=== PATIENT | female | born 1945 | race Caucasian/White ===

== ENCOUNTER 2022-04-29 08:52 | Outpatient (CLI) | payer MEDICARE, SELFPAY ==
[2022-04-29 13:53] LABS: Chloride* 105 mmol/L (96-114); Potassium* 4.4 mmol/L (3.6-5.1); Sodium* 137 mmol/L (135-149)
[2022-04-29 13:55] LABS: Cholesterol* 191 mg/dL (90-199); Creatinine* 0.8 mg/dL (0.5-1.5); Estimated Glomerular Filt Rate 77 ml/min
[2022-04-29 13:56] LABS: Blood Urea Nitrogen* 22 mg/dL (7-30); Calcium* 9.6 mg/dL (8.4-10.6); Carbon Dioxide* 26 mmol/L (20-32); Glucose* 96 mg/dL (60-115); Triglycerides* 70 mg/dL (40-149)
[2022-04-29 14:12] LABS: HDL Cholesterol* 87 mg/dL (>=50); LDL Cholesterol Calculated 90 mg/dL (<100)
[2022-04-29 14:40] LABS: Vitamin D 25 Hydroxy* 67 ng/mL (30-80)
== END 2022-04-29 08:53 | disposition home or self-care (01) ==
PROVIDERS: PCP Internal Medicine; Visit Provider Internal Medicine
DX: Z00.00 Encounter for general adult medical examination without abnormal findings (principal); E78.5 Hyperlipidemia, unspecified; I10 Essential (primary) hypertension; M85.80 Other specified disorders of bone density and structure, unspecified site; I25.10 Atherosclerotic heart disease of native coronary artery without angina pectoris
CPT/HCPCS: 80048; 80061; 82306

== ENCOUNTER 2023-01-16 07:53 | Outpatient (CLI) | payer MEDICARE, BC, SELFPAY ==
--- NOTE | 2023-01-16 08:15 | CRLHL7_ITS ---
For Patients: As a result of the Century Cures Act, medical imaging exams and procedure reports are released immediately into your electronic medical record. You may view this report before your referring provider. If you have questions, please contact your health care provider. BILATERAL SCREENING MAMMOGRAM WITH COMPUTER-AIDED DETECTION AND TOMOSYNTHESIS TECHNIQUE: CC and MLO views were obtained. These mammographic images have been obtained using full-field digital technique. These mammographic images were interpreted with the benefit of computer-aided detection. Breast Tomosynthesis was used in this interpretation. COMPARISON FILM: 12/05/21, 05/10/21, 05/08/20. FINDINGS: The breasts are heterogeneously dense, which may obscure small masses IMPRESSION: There is no radiographic evidence for malignancy. ASSESSMENT: BI-RADS Category 2: Benign RECOMMENDATION: Routine screening mammogram in 1 year. A lay language report of this examination will be provided to the patient. Jaswinder Camp M.D. Diagnostic Radiologist [email or web address] ZAC/hector Transcribed: 2:44 p.jaki young/Dictated by: Jaswinder Camp MD @ 01/16/2023 9:17:00 AM (Electronically Signed)
== END 2023-01-16 07:54 | disposition home or self-care (01) ==
LOC: MAMMO 07:54
PROVIDERS: PCP Internal Medicine; Visit Provider Internal Medicine
DX: Z12.31 Encounter for screening mammogram for malignant neoplasm of breast (principal); R92.2 Inconclusive mammogram
CPT/HCPCS: 77063; 77067

== ENCOUNTER 2023-03-04 11:33 | Outpatient (CLI) | payer MEDICARE, BC, SELFPAY ==
--- OUTSIDE RECORDS SUMMARY | 2023-03-10 10:01 | XMS_ITS | Continuity of Care Document ---
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 Name Role Phone Hanna Scotty CONTI Unavailable Unavailable Allergies, Adverse Reactions, Alerts Substance Reaction Status Criticality No Known Allergies Active No Inform ation Medications Medication Instructions Dosage Effective Dates (start - stop) Status Comments albuterol sulfate HFA 90 mcg/actuation aerosol inhaler inhale 2 puff by inhalation route every 4 - 6 hours as needed 180 MCG - Active aspirin 81 mg tablet,delayed release take 1 tablet by oral route every day 81 MG - Active atorvastatin 20 mg tablet take 1 tablet by oral route every day 20 MG - Active dorzolamide-timolol (PF) 2 %-0.5 % eye drops in a dropperette instill 1 drop by ophthalmic route 2 times every day into affected eye(s) 1.00 drop - Active Advair Diskus 250 mcg-50 mcg/dose powder for inhalation inhale 1 puff by inhalation route 2 times every day in the morning and evening approximately 12 hours apart 1.00 puff - Active ketorolac 0.5 % eye drops instill 1 drop by ophthalmic route 2 times every day into affected eye(s) 1 drop - Active losartan 25 mg tablet take 1 tablet by o ral route every day 25 MG - Active metoprolol succinate ER 100 mg tablet,extended release 24 hr take 1 tablet by oral route every day 100 MG - Active Procedures Procedure Date Colonoscopy Flex; W/remov Les- Level Iv-surg Path Gross/micro Advance Directives Directive Yes / No Effective Date File Name No Information Encounters Encounter Description Practice Location Reason(s) For Visit Diagnoses Date Provider Providers Copied on Encounter [facility], [address] [address], [place], [place], [address], [place] tel:[phone] [facility] No Information 2 Hanna GALLITO Scotty. [address], [place], [place], [address], [place]. tel:[phone] Referring Provider: Roby Lopez, [address], [place], [address] . tel:[phone] [facility], [address] [address], [place], [place], [address], [place] tel:[phone] [facility] GI Symptoms or Concerns (chief complaint) Positive colorectal cancer screening using Cologuard testColorectal polyp detected on colonoscopyBenign neoplasm of cecumBenign neoplasm of ascending colonBenign neoplasm of descending colonOther fecal abnormalitiesBenig n neoplasm of cecum 2 Albetr Ca. [address], [place], [place], [address], [place]. tel:[phone] Referring Provider: Astrid Perez, [address] [place], [address]. tel:[phone] [facility], [address] [address], [place], [place], [address], [place] tel:[phone] [facility] No Information 2 Ana Harris. [address], [place], [place], [address], [place]. tel:[phone] Family History Family Member Type Diagnosis Age At Onset Mother Problem (finding) malignant neoplasm of p ancreas Immunizations Vaccine Date Status Comments influenza, high-dose seasona l, quadrivalent, .7mL dose, preservative free administered Note: [facility] bi-direct ional interface ; Source: Other Registry SARS-COV-2 (COVID-19) vaccin e, mRNA, spike protein, LNP, preservative free, 30 mcg/0.3mL dose administered Note: [facility] bi-direct ional interface ; Source: Other Registry SARS-COV-2 (COVID-19) vaccin e, mRNA, spike protein, LNP, preservative free, 30 mcg/0.3mL dose administered Note: [facility] bi-direct ional interface ; Source: Other Registry SARS-COV-2 (COVID-19) vaccin e, mRNA, spike protein, LNP, preservative free, 30 mcg/0.3mL dose administered Note: [facility] bi-direct ional interface ; Source: Other Registry influenza, seasonal vaccine, quadrivalent, adjuvanted, .5mL dose, preservative free administered Note: [facility] bi-di rectional interface ; Source: Other Registry zoster vaccine recombinant administered N ote: [facility] bi-directional interface ; Source: Other Registry zoster vaccine recombinant administered N ote: [facility] bi-directional interface ; Source: Other Registry influenza, high dose seasona l, preservative-free administered Note: [facility] bi-direct ional interface ; Source: Other Registry influenza, high dose seasona l, preservative-free administered Note: [facility] bi-direct ional interface ; Source: Other Registry influenza, high dose seasona l, preservative-free administered Note: [facility] bi-direct ional interface ; Source: Other Registry influenza, high dose seasona l, preservative-free administered Note: [facility] bi-direct ional interface ; Source: Other Registry influenza, high dose seasona l, preservative-free administered Note: [facility] bi-direct ional interface ; Source: Other Registry Prevnar 13 administered Note: [facility] bi-d irectional interface ; Source: Other Registry influenza, high dose seasona l, preservative-free administered Note: [facility] bi-direct ional interface ; Source: Other Registry Influenza, seasonal, injecta ble, preservative free administered Note: [facility] bi-direct ional interface ; Source: Other Registry tetanus toxoid, reduced diphtheria toxoid, and acellular pertussis vaccine, adsorbed administered Note: [facility] b i-directional interface ; Source: Other Registry Pneumovax 23 administered Note: [facility] bi-d irectional interface ; Source: Other Registry Influenza, seasonal, injectable administe red Note: [facility] bi- directional interface ; Source: Other Registry zoster vaccine, live administered Note: [facility] bi-directional interface ; Source: Other Registry Influenza, seasonal, injecta ble, preservative free administered Note: [facility] bi-direct ional interface ; Source: Other Registry Influenza, seasonal, injecta ble, preservative free administered Note: [facility] bi-direct ional interface ; Source: Other Registry Influenza, seasonal, injectable administe red Note: [facility] bi- directional interface ; Source: Other Registry Influenza, seasonal, injectable administe red Note: [facility] bi- directional interface ; Source: Other Registry Influenza, seasonal, injectable administe red Note: [facility] bi- directional interface ; Source: Other Registry Influenza, seasonal, injectable administe red Note: [facility] bi- directional interface ; Source: Other Registry influenza virus vaccine, unspecified formulation administered Note: [facility] bi-di rectional interface ; Source: Other Registry influenza virus vaccine, unspecified formulation administered Note: [facility] bi-di rectional interface ; Source: Other Registry influenza virus vaccine, unspecified formulation administered Note: [facility] bi-di rectional interface ; Source: Other Registry influenza virus vaccine, unspecified formulation administered Note: [facility] bi-di rectional interface ; Source: Other Registry Payers Payer name Insurance type Covered green party ID Authoriza tireum(s) [employer] [place] [employer] BL [id number] Social History Type Description Quantity Date Captured Comments Sex Female Smoking Status No Information Chief Complaint And Reason For Visit No Information Reason For Referral Reason For Referral No Information Plan Of Treatment Date Type Action Status No Information History Of Present Illness Encounter Date Complaint History Of Prese nt Illness GI Symptoms or Concerns Functional Status Date Functional Assessmen t No Information Instructions Date Instruction Additional Infor mation Diverticulosis/Diverticulitis Re lated to Colorectal polyp detected on colonoscopy Colon Polyps Related to Color ectal polyp detected on colonoscopy High Fiber Diet Related to Color ectal polyp detected on colonoscopy Colon Cancer Prevention Related to Colorectal polyp detected on colonoscopy Assessments Type Assessment Date No Information Patient Care Teams Name Effective Dates (start - stop) Status Members No Information
== END 2023-03-04 11:34 | disposition home or self-care (01) ==
LOC: AMB 03-10 09:59
PROVIDERS: PCP Internal Medicine; Visit Provider Family Medicine
DX: I62.00 Nontraumatic subdural hemorrhage, unspecified (principal)
CPT/HCPCS: A0425; A0428; A0434

== ENCOUNTER 2023-06-03 08:35 | Outpatient (CLI) | payer MEDICARE, BC, SELFPAY | END 2023-06-03 08:36 | disposition home or self-care (01) | LOC: NFLDREF 17:39 | PROVIDERS: PCP Internal Medicine; Referring Provider Internal Medicine; Visit Provider Internal Medicine | DX: E78.5 Hyperlipidemia, unspecified (principal); M85.80 Other specified disorders of bone density and structure, unspecified site; I10 Essential (primary) hypertension | CPT/HCPCS: 80048; 80061; 82306 ==

== ENCOUNTER 2023-07-30 08:41 | Outpatient (CLI) | payer MEDICARE, BC, SELFPAY ==
--- NOTE | 2023-07-30 09:00 | CRLHL7_ITS ---
For Patients: As a result of the Century Cures Act, medical imaging exams and procedure reports are released immediately into your electronic medical record. You may view this report before your referring provider. If you have questions, please contact your health care provider. INDICATION: Subdural hematoma, follow-up. TECHNIQUE: Noncontrast CT of the head with multiplanar reformat in bone and soft tissue algorithms. COMPARISON: CT head dated 03/04/2023. FINDINGS: Interval right frontal craniotomy for subdural hematoma evacuation. Significant interval decrease in size of the right hemispheric subdural hematoma with residual hypodense component at the inferior frontal convexity measuring up to 5 millimeters in thickness (series 6, image 37). As before, prominence of the right cerebellopontine angle cistern perhaps representing arachnoid cyst. The reeder-white matter interface is preserved. Corresponding decrease in [id number] midline shift which now measures approximately 3 millimeters (previously 9 millimeters). The ventricles are normal in size. Redemonstrated evidence of prior right scleral banding. Paranasal sinuses and mastoid air cells are clear. IMPRESSION: 1. Interval right frontal craniotomy with significant decrease in size of the the subdural hematoma and decreased associated midline shift. 2. No CT evidence of cortical infarct. 3. 5 mm residual subdural fluid collection at the right inferior frontal convexity and 3 mm residual midline shift. 4. Prominence of the CSF space at the right cerebellopontine angle, perhaps reflecting arachnoid cyst. Please note that all CT scans at this facility use dose modulation, iterative reconstruction, and/or weight-based dosing when appropriate to reduce radiation dose to as low as reasonably achievable. Dictated by Marcus Joshi MD @ 07/30/2023 12:39:56 PM (Electronically Signed)
== END 2023-07-30 08:42 | disposition home or self-care (01) ==
LOC: CT 08:42
PROVIDERS: PCP Internal Medicine; Visit Provider Physician Assistant
DX: S06.5XAA Traumatic subdural hemorrhage with loss of consciousness status unknown, initial encounter (principal)
CPT/HCPCS: 70450

== ENCOUNTER 2023-08-07 11:47 | Emergency (ER) | payer MEDICARE, BC, SELFPAY ==
[2023-08-07 12:11] VITALS: BP 146/85; PULSE 84; RESP 16; TEMP 36.2; O2SAT 92; BMI 24.7
[2023-08-07 15:38] VITALS: BP 159/84; PULSE 86; RESP 18; TEMP 36.7; O2SAT 94
--- NOTE | 2023-08-07 15:39 | PC.NURSE ---
Pt in waiting room, reassessed, nose clamp has been on since 1244. Still feeling some drainage into back of throat, bleeding was in right nare. Pt pleasant, VSS, will continue to monitor.
--- NOTE | 2023-08-07 16:54 | ED_ITS ---
HPI - General Adult General Date Seen: 08/07/23 Chief complaint: Epistaxis/Nosebleed Stated complaint: Nose bleed Time Seen by Provider: 08/07/23 16:20 History of Present Illness HPI narrative: This is a very pleasant 78-year-old female presenting to the ER today with her for evaluation of epistaxis. She does not take any blood thinners. 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 She has been healthy and well lately. No recent nasal injury, nasal infection, sinus infections, or allergies. No other unusual bleeding or bruising lately. Around 930 this morning she began to having a nose bleed. It was coming from both nostrils with seemed to be heavier on the right than on the left. She was also having bleeding down the back of her oropharynx. Bleeding happened off and on throughout the morning and she came here to the ER. She was given a nasal clip to place on her nose here and bleeding has slowed with that but is still occurring intermittently. She is not lightheaded, weak, dizzy, or short of breath from blood loss. She recalls that she has had a nose bleed he several years ago, on the left nostril, that was cauterized by ENT. No other long-term recurrent nosebleeds Related Data Home Medications Medication Instructions Recorded Confirmed albuterol sulfate 90 mcg/actuation 2 inhalation PRN 05/02/22 06/17/23 aerosol inhaler calcium carbonate 600 mg-vitamin 2 tab PO DAILY 05/02/22 06/17/23 D3 10 mcg (400 unit) tablet cyanocobalamin (vitamin B-12) 1,000 mcg PO DAILY 05/02/22 06/17/23 1,000 mcg tablet,extended release dorzolamide 22.3 mg-timolol 6.8 1 ophthalmic (eye) BID 05/02/22 06/17/23 mg/mL eye drops fluticasone propionate 230 2 inhalation BID 05/02/22 06/17/23 mcg-salmeterol 21 mcg/actuation HFA inhaler ketorolac 0.5 % eye drops 0.5 drp ophthalmic (eye) BID 05/02/22 06/17/23 multivitamin (Multiple Vitamins 1 tab PO QAM 05/02/22 06/17/23 tablet) vitamin B complex 1 cap PO QDAY 05/02/22 06/17/23 levetiracetam 750 mg tablet 1,500 mg PO BID 04/03/23 06/17/23 Previous Rx's Medication Instructions Recorded nitroglycerin 0.4 mg sublingual 0.4 mg sublingual Q5M PRN chest 05/02/22 tablet pain #20 tabs atorvastatin 20 mg tablet 20 mg PO .Bedtime #90 tabs 06/09/23 metoprolol succinate 50 mg 50 mg PO QDAY #90 tabs 06/09/23 tablet,extended release 24 hr codeine 10 mg-guaifenesin 100 mg/5 10 ml PO Q4-6H PRN cough #237 mL 06/17/23 mL oral liquid (Guaifenesin AC) Allergies Allergy/AdvReac Type Severity Reaction Status Date / Time No Known Allergies Allergy Unknown Verified 08/07/23 12:10 PFS PFS Surgical History Retinal detachment ?H33.20 - Serous retinal detachment, unspecified eye (ICD-10) History of laparoscopic appendectomy (02/2014) ?Z90.49 - Acquired absence of other specified parts of digestive tract (ICD- 10) History of bilateral salpingo-oophorectomy (BSO) (02/2014) ?Z90.79 - Acquired absence of other genital organ(s) (ICD-10) ?Z90.722 - Acquired absence of ovaries, bilateral (ICD-10) History of benign breast biopsy ?Z98.890 - Other specified postprocedural states (ICD-10) Social History Smoking Status: Never smoker How often do you have a drink containing alcohol: monthly or less AUDIT-C Alcohol total score: 1 Non-prescribed substance use: denies use Little interest or pleasure in doing things: not at all Feeling down, depressed, or hopeless: not at all service: No Exam Narrative: Exam Narrative: Constitutional: Appears well-developed and well-nourished. Alert. Conversant. Non toxic. HENT: Head: Atraumatic. Nose: Clip in place, removed for exam. External Nose normal. No deformity or swelling to suggest trauma. She has no active epistaxis. There is some dry blood around the right anterior naris. Small amount of dry blood in left anterior nares. No posterior pharyngeal bleeding. Evaluated using otoscope. Possible small site of recent bleeding on the left anterior septal mucosa. Too much dry blood to visualize any site of bleeding on the right. Applied Afrin. Re-evaluation. Still no definitive site of bleeding. No recurrent bleeding at but did spit out 1 small pea size clot of blood. Applied viscous lidocaine-2% on a cotton ball in each nostril. Re-evaluation- her right nares is clean and dry. No active bleeding. No residual clots. No stigmata of recent bleeding visualized in the anterior secti on. In the left nose there is also no active bleeding. There is a small purple lesion there that may be a recent L. However based on the predominance of the bleeding being from the right nostril earlier, I do not think this was the true source of epistaxis. Concern here is for possible a posterior bleed. At this point she is not bleeding. A monitor the patient here in the ER. She had no recurrent bleeding. She had a vigorous ambulation trial out in the hallway down to the hospital statue and back. She was able to bend over and touch her toes and put her head in dependent position and this did not trigger any rebleeding. Mouth/Throat: Oral mucosa is clear and moist. no trismus. Pharynx normal. Tonsils symmetric. No tonsillar enlargement, erythema, or exudate. Eyes: Conjunctivae normal. EOM normal. Pupils equal, round, and reactive to light. No scleral icterus. Neck: Normal range of motion. Neck supple. No tracheal deviation present. Cardiovascular: Normal rate, regular rhythm. No gallop. No friction rub. No murmur heard. Symmetric radial artery pulses Pulmonary/Chest: Effort normal. No stridor. No respiratory distress. No wheezes. No rales. No rhonchi . No tenderness. Abdominal: Soft. Bowel sounds normal. No distension. No mass. No tenderness. No rebound. No guarding. Musculoskeletal: RUE: Normal range of motion. No tenderness. No deformity LUE: Normal range of motion. No tenderness. No deformity RLE: Normal range of motion. No edema. No tenderness. No deformity LLE: Normal range of motion. No edema. No tenderness. No deformity Lymph: No cervical adenopathy. Neurological: Alert and oriented to person, place, and time. Normal strength. CN II-VII intact. No sensory deficit. GCS eye subscore is 4. GCS verbal subscore is 5. GCS motor subscore is 6. Normal coordination Skin: Skin is warm and dry. No rash noted. No pallor. Normal capillary refill. Psychiatric: Normal mood. Normal affect. Const: Vital Signs, click to edit/add: Vital Signs - 24 hr 08/07/23 12:11 08/07/23 15:38 Temperature 97.2 F L 98.0 F Pulse Rate [Pulse Oximeter] 84 86 Respiratory Rate 16 18 Blood Pressure [Ri ght Upper Arm] 146/85 H 159/84 H Pulse Oximetry 92 94 Oxygen Delivery Me thod Room Air Room Air Course Vital Signs Vital signs: Initial Vital Signs Temperature 97.2 F L 08/07/23 12:11 Temperature Source Temporal Artery Scan 08/07/23 12:11 Pulse Rate 84 08/07/23 12:11 Pulse Rhythm Regular 08/07/23 12:11 Pulse Strength 3+ Normal 08/07/23 12:11 Respiratory Rate 16 08/07/23 12:11 Blood Pressure 146/85 H 08/07/23 12:11 Blood Pressure Mean 105 08/07/23 12:11 Blood Pressure Position Sitting 08/07/23 12:11 Pulse Oximetry 92 08/07/23 12:11 Oxygen Delivery Method Room Air 08/07/23 12:11 Vital Signs Temperature 97.2 F L 08/07/23 12:11 Pulse Rate 84 08/07/23 12:11 Respiratory Rate 16 08/07/23 12:11 Blood Pressure 146/85 H 08/07/23 12:11 Pulse Oximetry 92 08/07/23 12:11 Oxygen Delivery Method Room Air 08/07/23 12:11 Temperature 98.0 F 08/07/23 15:38 Pulse Rate 86 08/07/23 15:38 Respiratory Rate 18 08/07/23 15:38 Blood Pressure 159/84 H 08/07/23 15:38 Pulse Oximetry 94 08/07/23 15:38 Oxygen Delivery Method Room Air 08/07/23 15:38 Medical Decision Making MDM Narrative Medical decision making narrative: This is a pleasant 78-year-old female who presents to the ER today for intermittent nose bleeds coming from both nostrils, but predominantly the right nostril that began this morning. She had been waiting here in the ER lobby for couple of hours and applying direct pressure with a nasal clamp. Nosebleed was essentially controlled by the time I evaluated her. We did do careful evaluation to look for sources of anterior nose bleed that might be amenable to cautery. However there did really is not any clear source in the anterior nares. Suspicion is for probable posterior bleed. Discussed with the patient that at this point she is not bleeding. There is certainly a risk that she would rebleed later this afternoon or tonight or tomorrow. We could minimize the risk of rebleeding if we packed her nose with a rhino rocket. However the downsides of nasal packing would include discomfort, risk for sinus infection, trouble breathing, and need for ENT follow-up to remove the packing. Using shared decision making we decided to hold off on packing at this time. Fortunately she is not anticoagulated. She is not having any symptoms of anemia or weakness. Will hold off on CBC her labs. Blood pressure minimally elevated. We discussed steps for managing recurrent epistaxis at home and precautions for return to the ER. Patient and her agree and understand. If he does return with rebleeding, would re-evaluate her anterior still for any new site that might be amenable to cautery, but I suspect she will probably need packing with a rhino rocket. Discharge Plan Discharge Clinical Impression: Epistaxis Patient Disposition: Home, Self-Care Condition: Stable Instructions: Nosebleed (ED) Additional Instructions: If your nose starts bleeding again, follow the steps. 1. Go somewhere where you do not mind making a mess. Lean forward so bleeding comes out the front, not down the back of your throat. 2. Use your fingers with a nasal clip to apply pressure to the soft squishy part of the front of your nose. Apply pressure for 10 minutes. 3. If the bleeding has not stopped, apply Afrin into the bleeding nostril (as we did here) and reapply pressure for 10 minutes. 4. If the bleeding still does not stop, come to the ER for re-evaluation. You probably will require nasal packing to stop the bleed. Prescriptions: No Action calcium carbonate-vitamin D3 600 mg-10 mcg (400 unit) tablet 2 tab PO DAILY vitamin B complex Capsule 1 cap PO QDAY multivitamin [Multiple Vitamins] Tablet 1 tab PO QAM albuterol sulfate 90 mcg/actuation HFA aerosol inhaler 2 inhalation PRN cyanocobalamin (vitamin B-12) 1,000 mcg tablet extended release 1,000 mcg PO DAILY ketorolac 0.5 % drops 0.5 drp ophthalmic (eye) BID dorzolamide-timolol 22.3-6.8 mg/mL drops 1 ophthalmic (eye) BID fluticasone propion-salmeterol 230-21 mcg/actuation HFA aerosol inhaler 2 inhalation BID nitroglycerin 0.4 mg tablet, sublingual 0.4 mg sublingual Q5M PRN (Reason: chest pain) Qty: 20 3RF Rx Instructions: PRN CHEST PAIN levetiracetam 750 mg tablet 1,500 mg PO BID metoprolol succinate 50 mg tablet extended release 24 hr 50 mg PO QDAY Qty: 90 3RF atorvastatin 20 mg tablet 20 mg PO .Bedtime Qty: 90 3RF codeine-guaifenesin [Guaifenesin AC] 10-100 mg/5 mL liquid 10 ml PO Q4-6H PRN (Reason: cough) Qty: 237 0RF Follow Up/Referrals: Astrid Malin MD [Primary Care Provider] - [facility]
--- OUTSIDE RECORDS SUMMARY | 2023-08-07 16:56 | XMS_ITS | Continuity of Care Document ---
Author Name Unknown Organization [facility] Address [address] [address] [place] [address] Phone Care Team Providers Care Care Companion Name Role Phone Hanna Scotty CONTI Unavailable [...] Diagnoses Date Provider Providers Copied on Encounter [facility], [address] [address], [place], [place], [id number], [place] tel:[phone] [facility] No Information 2 Hanna GALLITO Scotty. [address], [place], [place], [id number], [place]. tel:[phone] Referring Provider: Roby Lopez, [address], [place], [address] . tel:[phone] [facility], [address] [address], [place], [place], [address], [place] tel:[phone] [facility] GI Symptoms or Concerns (chief complaint) Positive colorectal cancer screening using Cologuard testColorectal polyp detected on colonoscopyBenign neoplasm of cecumBenign neoplasm of ascending colonBenign neoplasm of descending colonOther fecal abnormalitiesBenig n neoplasm of cecum 2 Albert Ca. [address], [address], [place], [place], [address], [place]. tel:[phone] Referring Provider: Astrid Perez, [address] [place], [address]. tel:[phone] [facility], [address] [address], [place], [place], [address], [place] tel:[phone] [facility] No Information 2 Ana Harris. [address], [address], [place], [place], [address], [place]. tel:[phone] Family History Family Member Type Diagnosis Age [...] Registry Payers Payer name Insurance type Covered libertarian ID Authoriza tion(s) Blue Cross [place] Blue BL [id number] Social History Type Description Quantity Date Captured Comments Sex Female Smoking Status No Information Chief Complaint And Reason For Visit No Information Reason For Referral Reason For Referral No Information History Of Present Illness Encounter [...]
[2023-08-07] MEDS: OXYMETAZOLINE (AFRIN) SOAK 1 EACH TOPICAL (17:31)
[2023-08-07] MEDS: lidocaine HCL 2 % JELLY (TOP) STERILE 6 ML TOPICAL (17:32)
== END 2023-08-07 17:27 | disposition home or self-care (01) ==
PROVIDERS: Emergency Provider Emergency Medicine; PCP Internal Medicine
DX: R04.0 Epistaxis (principal)
CPT/HCPCS: 99282; 99283

== ENCOUNTER 2023-10-18 06:25 | Emergency (ER) | payer MEDICARE, BC, SELFPAY ==
[2023-10-18] VITALS (9 sets, daily range): BP systolic 160–194; BP diastolic 82–107; PULSE 60–74; RESP 20; TEMP 36; O2SAT 94–98
--- NOTE | 2023-10-18 06:52 | CRLHL7_ITS ---
For Patients: As a result of the Century Cures Act, medical imaging exams and procedure reports are released immediately into your electronic medical record. You may view this report before your referring provider. If you have questions, please contact your health care provider. INDICATION: Dizziness COMPARISON: July 30, 2023 TECHNIQUE: CT examination of the head was performed as axial sections without intravenous contrast. Images were obtained from the vertex of the skull through the skull base. Please note that all CT scans at this facility use dose modulation, iterative reconstruction, and/or weight-based dosing when appropriate to reduce radiation dose to as low as reasonably achievable. FINDINGS: The brain shows no sign of mass lesion, mass effect, hemorrhage, or edema. There are involutional changes. There is mild cortical atrophy and there is mild white matter disease. There is no hydrocephalus. The visualized portions of the orbits are normal in appearance. Right frontotemporal craniotomy similar to the prior study. No acute osseous finding IMPRESSION: Involutional changes. No acute-appearing findings. Findings of a prior right frontotemporal craniotomy. Similar to the prior examination. Please note that all CT scans at this facility use dose modulation, iterative reconstruction, and/or weight-based dosing when appropriate to reduce radiation dose to as low as reasonably achievable. Dictated by Sam Redmond MD @ 10/18/2023 7:23:44 AM (Electronically Signed)
--- NOTE | 2023-10-18 07:00 | ED.DIZZY ---
HPI - Dizziness General Chief Complaint: Dizziness/Vertigo Stated Complaint: dizzy Time Seen by Provider: 10/18/23 06:44 History of Present Illness HPI Narrative: Patient is a 78-year-old woman who actually had a subdural hematoma evacuated in February of 2023. Fallen the previous November and . The subdural have been growing since that time. She presents today with the abrupt onset of dizziness and vertigo that occurred this morning. She has had no nausea no vomiting no fevers no chills no headaches. Her symptoms have improved since she woke this morning. Patient is concerned that this subdural has returned. She has had no seizure activity and has not had any recent injuries. She has no discomfort at this time. She is not on blood thinners anti-platelet agents or anticoagulants. Related Data Home Medications Medication Instructions Recorded Confirmed albuterol sulfate 90 mcg/actuation 2 inhalation PRN 05/02/22 10/14/23 aerosol inhaler calcium carbonate 600 mg-vitamin 2 tab PO DAILY 05/02/22 10/14/23 D3 10 mcg (400 unit) tablet cyanocobalamin (vitamin B-12) 1,000 mcg PO DAILY 05/02/22 10/14/23 1,000 mcg tablet,extended release dorzolamide 22.3 mg-timolol 6.8 1 ophthalmic (eye) BID 05/02/22 10/14/23 mg/mL eye drops fluticasone propionate 230 2 inhalation BID 05/02/22 10/14/23 mcg-salmeterol 21 mcg/actuation HFA inhaler ketorolac 0.5 % eye drops 0.5 drp ophthalmic (eye) BID 05/02/22 10/14/23 multivitamin (Multiple Vitamins 1 tab PO QAM 05/02/22 10/14/23 tablet) vitamin B complex 1 cap PO QDAY 05/02/22 10/14/23 Previous Rx's Medication Instructions Recorded nitroglycerin 0.4 mg sublingual 0.4 mg sublingual Q5M PRN chest 05/02/22 tablet pain #20 tabs atorvastatin 20 mg tablet 20 mg PO .Bedtime #90 tabs 06/09/23 metoprolol succinate 50 mg 50 mg PO QDAY #90 tabs 06/09/23 tablet,extended release 24 hr losartan 25 mg tablet 25 mg PO DAILY #90 tabs 10/14/23 Allergies Allergy/AdvReac Type Severity Reaction Status Date / Time No Known Allergies Allergy Unknown Verified 10/14/23 07:57 Review of Systems Status of ROS: Reports: 10 or more systems reviewed and unremarkable except as noted in History and below [facility] Medical History History of subdural hematoma ?Z86.79 - Personal history of other diseases of the circulatory system (ICD-10) Surgical History Retinal detachment ?H33.20 - Serous retinal detachment, unspecified eye (ICD-10) History of laparoscopic appendectomy (02/2014) ?Z90.49 - Acquired absence of other specified parts of digestive tract (ICD-10) History of bilateral salpingo-oophorectomy (BSO) (02/2014) ?Z90.79 - Acquired absence of other genital organ(s) (ICD-10) ?Z90.722 - Acquired absence of ovaries, bilateral (ICD-10) History of benign breast biopsy ?Z98.890 - Other specified postprocedural states (ICD-10) Social History Smoking Status: Never smoker How often do you have a drink containing alcohol: monthly or less AUDIT-C Alcohol total score: 1 Non-prescribed substance use: denies use Little interest or pleasure in doing things: not at all Feeling down, depressed, or hopeless: not at all service: No Exam Narrative: Exam Narrative: EXAM GENERAL: Patient appears comfortable and well. EYES: No scleral icterus. LYMPH: No supraclavicular or cervical lymphadenopathy. SKIN: Visible skin seen during exam normal or with benign process only. EXT: No dependent lower extremity pedal edema. HEART: Regular rate and rhythm with no murmurs, rubs, or gallops. LUNGS: Clear to auscultation bilaterally with no crackles or wheezes. ABD: Soft, non tender, non distended. PSYCH: Good eye contact, speech is not pressured. Const: Vital Signs, click to edit/add: Vital Signs - 24 hr 10/18/23 06:27 10/18/23 06:53 Temperature 96.8 F L Pulse Rate [Left P ulse Oximeter] 74 Respiratory Rate 20 Blood Pressure [Ri ght Upper Arm] 194/107 H 160/87 H Pulse Oximetry 98 Oxygen Delivery Me thod Room Air Course Course ED Course: Patient seen and examined. CT of the head is pending. Vital Signs Vital signs: Initial Vital Signs Temperature 96.8 F L 10/18/23 06:27 Temperature Source Oral 10/18/23 06:27 Pulse Rate 74 10/18/23 06:27 Pulse Rhythm Regular 10/18/23 06:27 Respiratory Rate 20 10/18/23 06:27 Blood Pressure 194/107 H 10/18/23 06:27 Blood Pressure Mean 136 H 10/18/23 06:27 Blood Pressure Position Sitting 10/18/23 06:27 Pulse Oximetry 98 10/18/23 06:27 Oxygen Delivery Method Room Air 10/18/23 06:27 Vital Signs Temperature 96.8 F L 10/18/23 06:27 Pulse Rate 74 10/18/23 06:27 Respiratory Rate 20 10/18/23 06:27 Blood Pressure 194/107 H 10/18/23 06:27 Pulse Oximetry 98 10/18/23 06:27 Oxygen Delivery Method Room Air 10/18/23 06:27 Temperature 96.8 F L 10/18/23 06:27 Pulse Rate 74 10/18/23 06:27 Respiratory Rate 20 10/18/23 06:27 Blood Pressure 160/87 H 10/18/23 06:53 Pulse Oximetry 98 10/18/23 06:27 Oxygen Delivery Method Room Air 10/18/23 06:27 MDM - Dizziness MDM Narrative Medical decision making narrative: Patient is a 78-year-old woman who awoke this morning with mild vertigo. She is very concerned she is status post craniotomy for a subdural hematoma in the past. CT of the head done in the emergency room is unremarkable for acute changes and shows only evidence of previous craniotomy. Patient will be treated symptomatically with positional treatment for benign positional vertigo. She can drink plenty of fluids get plenty of rest and follow-up with primary physician as needed. Of note her neurologic exam is completely normal. Differential Diagnosis Differential diagnosis: Likely adverse reaction to drug, benign paroxysmal positional vertigo, orthostatic hypotension, vertebral basilar insufficiency, cerebrovascular accident, acute vestibular neuronitis and transient cerebral ischemia Discharge Plan Discharge Clinical Impression: Benign paroxysmal positional vertigo Patient Disposition: Home, Self-Care Condition: Stable Instructions: Benign Paroxysmal Positional Vertigo (ED) Additional Instructions: Rest Fluids Follow-up with your doctor as needed. Activity Level: No Restrictions Discharge Diet: Regular Prescriptions: No Action calcium carbonate-vitamin D3 600 mg-10 mcg (400 unit) tablet 2 tab PO DAILY vitamin B complex Capsule 1 cap PO QDAY multivitamin [Multiple Vitamins] Tablet 1 tab PO QAM albuterol sulfate 90 mcg/actuation HFA aerosol inhaler 2 inhalation PRN cyanocobalamin (vitamin B-12) 1,000 mcg tablet extended release 1,000 mcg PO DAILY ketorolac 0.5 % drops 0.5 drp ophthalmic (eye) BID dorzolamide-timolol 22.3-6.8 mg/mL drops 1 ophthalmic (eye) BID fluticasone propion-salmeterol 230-21 mcg/actuation HFA aerosol inhaler 2 inhalation BID nitroglycerin 0.4 mg tablet, sublingual 0.4 mg sublingual Q5M PRN (Reason: chest pain) Qty: 20 3RF Rx Instructions: PRN CHEST PAIN metoprolol succinate 50 mg tablet extended release 24 hr 50 mg PO QDAY Qty: 90 3RF atorvastatin 20 mg tablet 20 mg PO .Bedtime Qty: 90 3RF losartan 25 mg tablet 25 mg PO DAILY Qty: 90 3RF Follow Up/Referrals: Astrid Malin MD [Primary Care Provider] - Stand Alone Forms: [facility] Instructions
--- OUTSIDE RECORDS SUMMARY | 2023-10-18 07:07 | XMS_ITS | Continuity of Care Document ---
Author Name Unknown Organization [facility] Address [address] [address] [place] [address] Phone Care Team Providers Care Staff Submarine Warfare Officer Name Role Phone Sam Hutchins MD e Allergies, Adverse Reactions, Alerts Substance Reaction Status [...] Diagnoses Date Provider Providers Copied on Encounter [facility], [address] [address], [place], [id number], [place] tel:[phone] [facility] No Information 3 Sergei Vargsa. [address], [place], [id number], [place]. tel:[phone] [facility], [address] [address], [place], [id number], [place] tel:[phone] [facility] GI Symptoms or Concerns (chief complaint) Positive colorectal cancer screening using Cologuard testColorectal polyp detected on colonoscopyBenign neoplasm of cecumBenign neoplasm of ascending colonBenign neoplasm of descending colonOther fecal abnormalitiesBenig n neoplasm of cecum 2 Albert Nullm. [address], [facility] [address], [place], [id number], [place]. tel:[phone] Referring Provider: Astrid Malin MD , [address] [place] [address], [address]. tel:[phone] [facility], [address] [address], [place], [id number], [place] tel:[phone] [facility] No Information 2 Ana Harris. [address], [address] [address], [place], [id number], [place]. tel:[phone] Family History Family Member Type Diagnosis Age [...] Covered libertarian ID Authoriza tion(s) Blue Cross [place] Blue BL [id number] Social History Type Description Quantity Date Captured Comments Sex Female Smoking Status No Information Chief Complaint And Reason For Visit No Information Reason For Referral Reason For Referral No Information Plan Of Treatment Date Type Action Status Appointment Seema Amato BOOKED History Of Present Illness Encounter Date Complaint [...]
--- NOTE | 2023-10-18 08:04 | ED.NURSE ---
Patient provided print-out on [employer]. Advised to follow up with PCP for continuing symptoms. No questions/concerns, patient left ED ambulatory accompanied by .
== END 2023-10-18 08:04 | disposition home or self-care (01) ==
PROVIDERS: Emergency Provider Internal Medicine; PCP Internal Medicine
DX: H81.10 Benign paroxysmal vertigo, unspecified ear (principal)
CPT/HCPCS: 70450; 99283; 99284

== ENCOUNTER 2024-01-21 10:55 | Outpatient (CLI) | payer MEDICARE, BC, SELFPAY ==
--- OUTSIDE RECORDS SUMMARY | 2024-01-21 10:57 | XMS_ITS | Clinical Summary ---
Author Name Unknown Organization [facility] Address [address] [place] [address] Phone Care Team Providers Care Teacher Instrumental Name Role Phone Unavailable Primary Care Provider Unavailabl e Source Comments [employer] is fully rolled out on [employer] Last update 03/17/09.[facility] Allergies No known active allergies Medications * Be aware that medications may not be up to date as of this document. Always verify current medications with patient. Medication Sig Dispensed Refills Start Date End Date Status atorvastatin (LIPITOR) 20 mg oral TABS Take 1 tablet (20 mg) by mouth at bedtime. 03/12/2023 Active Calcium Carbonate-Vit D-Min (CALCIUM 600+D PLUS MINERALS) 600-400 MG-UNIT oral TABS Take 1 tablet by mouth twice daily. 03/12/2023 Active Multiple Vitamins-Minerals (B COMPLEX VITAMINS PLUS) oral TABS Take 1 tablet by mouth daily. 03/12/2023 Active albuterol (VENTOLIN HFA;PROVENTIL HFA;PROAIR) 108 (90 BASE) mcg/act inhalation inhaler Inhale 1-2 puffs every 4 hours as needed (as needed for shortness of breath in asthma). 03/12/2023 Active dorzolamide-timolol (COSOPT) 2-0.5% ophthalmic ophthalmic solution Place 1 drop into BOTH eyes twice daily. 03/12/2023 Active fluticasone-salmeter ol (AIRDUO RESPICLICK) 232-14 mcg/act inhaler Inhale 1 puff twice daily. 03/12/2023 Active ketorolac (ACULAR) 0.5 % ophthalmic solution Place 1 drop into RIGHT eye twice daily. 03/12/2023 Active prednisoLONE acetate (PRED FORTE) 1% ophthalmic ophthalmic suspension Place 1 drop into RIGHT eye twice daily. 03/12/2023 Active acetaminophen 325 mg oral tablet Take 2 tablets (650 mg) by mouth every 4 hours as needed for Mild Pain. 60 tablet 03/12/2023 Active cyanocobalamin (VITAMIN B-12) 1000 mcg oral tablet Take 1 tablet (1,000 mcg) by mouth. Active B Complex Vitamins (VITAMIN B-COMPLEX) oral TABS Take 1 tablet by mouth daily. 03/13/2023 Active nitroGLYCERIN (NITRODUR) 0.4 mg/hr transdermal patch 24 HR Apply 1 patch to skin daily. Active metoprolol succinate (TOPROL XL) 50 mg oral XL tablet Take 1 tablet (50 mg) by mouth daily. 04/08/2023 Active Calcium Carbonate-Vit D-Min (CALCIUM 600+D PLUS MINERALS) 600-400 MG-UNIT oral TABS Take 1 tablet by mouth. Active Active Problems Problem Noted Date Diagnosed Date SDH (subdural hematoma) ([facility]) 03/04/2023 Malignant mesothelioma of peritoneum (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) 08/05/2019 3 LIZAMA (dyspnea on exertion) 08/05/20192022 Scoliosis 08/05/2019 06/05/2023 Arteriosclerosis of coronary artery 11/15/2016 06/05/2023 Osteopenia 03/02/2010 06/05/2023 Essential hypertension 07/23/2007 3 Hyperlipidemia 07/23/2007 06/05/2023 Immunizations Name Administration Dates Next Due Diphtheria and Tetanus Toxoi d - Adult (Grifols Td) 01/20/2004 Influenza Vaccine - (3 + Yea rs); Preservative Free Trivalent 07/12/2013,07/05/2011 Influenza Vaccine - (3 Years +) Trivalent 07/04/2012,07/02/2010,08/29/2008,2005,08/17/2005,08/11/2004,08/20/2003 Influenza Vaccine, High Dose 07/22/2019, 07/16/2018,06/27/2017,2015,07/19/2015,06/10/2014 Influenza Vaccine, High Dose , Quadrivalent 07/23/2022,07/30/2021 Influenza Vaccine, Unspecified 8,08/02/1997,07/27/1996,1993 Pneumococcal Conjugate, 13 - Valent Vaccine(Prevnar 13) 03/30/2015 Pneumococcal Polysaccharide, 23 Valent Vaccine(Pneumovax 23) 07/24/2012 Tetanus Toxoid, Reduced Diph theroid Toxoid Acellular Pertussis 04/05/2013 Zoster Recombinant Adjuvant (Shingrix) 50 Years And Greater 03/07/2020,09/27/2019 Zoster Vaccine Live (ZOSTAVAX) 03/27/2012 Family History Medical History Relation Name Comments Heart disease Father Hypertension Father cerebrovascular disease Father Hypertension Mother Relation Name Status Comments Father Mother Social History Tobacco Use Types Packs/Day Years Used Date Smoking Tobacco: Never Smokeless Tobacco: Never Tobacco Cessation:Counseling Given: Not Answered Alcohol Use Standard Drinks/Week Comments Never 0 (1 standard drink = 0.6 oz pur e alcohol) Sex and Gender Information Value Date Recorded Sex Assigned at Not on file Gender Identity Not on file Sexual Orientation Not on file Last Filed Vital Signs Vital Sign Reading Time Taken Comments Blood Pressure 161/80 06/05/2023 10:47 AM CDT Pulse 75 06/05/2023 10:47 AM CDT Temperature 36.6 ??C (97.8 ??F) 04/23/2023 12:43 PM C DT Respiratory Rate 14 06/05/2023 10:47 AM CDT Oxygen Saturation 97% 03/12/2023 8:00 AM CDT Inhaled Oxygen Concentration - - Weight 66.7 kg (147 lb) 06/05/2023 10:47 AM CDT Height 160 cm (5' 3) 03/04/2023 1:00 PM CDT Body Mass Index 26.04 03/04/2023 1:00 PM CDT Plan of Treatment Health Maintenance Due Date Last Done Comments Dental Oral Exam 1947 Dental Prophylaxis 1945 Dental X-Ray: Bitewings 1945 Hepatitis C Screening 1947 Periodontal Maintenance 1961 Medicare Annual Wellness 1965 PREVENTATIVE VISIT 1965 HEALTH MAINTENANCE PROTOCOL 1966 Osteoporosis Screening (Dexa Scan) 2012 INFLUENZA VACCINE 05/13/2023 07/23/2022, , 07/22/2019, Additional history exists TD/TDAP ADULTS 07/24/2033 07/24/2023, /01/2013, 01/20/2004 PNEUMOCOCCAL IMMUNIZATION > 65 YRS Completed 07/24/2012 RSV Infant Immunoglobulin Aged Out 07/14/2023 No longer eligible based on patient's age to complete this topic COVID-19 Vaccine Completed 07/30/2023, 12/2021, 01/15/2022, Additional history exists HIB Aged Out No longer eligi ble based on patient's age to complete this topic Hepatitis B Vaccines Aged Out No long er eligible based on patient's age to complete this topic Medical Devices Implanted Type Area Jig Bore Operator Device Identifier Shelf Expiration Date Model / Serial / Lot Matrix Regnrtn Dural 3in 3in Duragen Xs Implanted:Qty : 1 on 03/04/2023 by Du Francois MD at [facility] Duragen Right: Head [employer] NEO 08/12/2024 [id number] / / [id number] Dura,Duragen 3x3in [id number] Implanted:Qty : 1 on 03/07/2023 by Michelle Adrian MD at [facility] Duragen Right: Skull [employer] NEO 11/12/2025 DUPLICATE [id number] / / [id number] Square Box Plate, 4 Hole 421.511 Implanted:Qty : 2 on 03/04/2023 by Du Francois MD at [facility] Plate Right: Head [employer] [place] 421.511 / / [place] Hole Cover, 17mm (421.554) Has Notch Cut Out - Use If Drains Placed Implanted:Qty : 1 on 03/04/2023 by Du Francois MD at [facility] Plate Right: Head [employer] 421.554 / / 4mm 400.834e Implanted:Qty : 13 on 03/04/2023 by Du Francois MD at [facility] Explanted:Qty : 7 on 03/07/2023 by Michelle Adrian MD at [facility] Screw/Welches Right: Head [employer] 400.834E / / 4mm 400.834e Implanted:Qty : 1 on 03/07/2023 by Michelle Adrian MD at [facility] Screw/Welches Right: Head [employer] [place] 400.834E / / Advance Directives For more information, please contact: [phone] * Full Code (Latest Code Status on File) Date Activated Date Inactivated Comments 03/12/2023 1:00 PM Question Answer Comments Does the Patient have prefer ences regarding life sustaining measures (these options only apply when the patient has a pulse): No Discussed Code Status With Whom? Not discussed * Full Code Date Activated Date Inactivated Comments 03/04/2023 6:33 PM 03/12/2023 1:00 PM Question Answer Comments Does the Patient have prefer ences regarding life sustaining measures (these options only apply when the patient has a pulse): No Discussed Code Status With Whom? Not discussed * Full Code Date Activated Date Inactivated Comments 03/04/2023 1:51 PM 03/04/2023 6:33 PM Question Answer Comments Does the Patient have prefer ences regarding life sustaining measures (these options only apply when the patient has a pulse): No Discussed Code Status With Whom? Not discussed
--- OUTSIDE RECORDS SUMMARY | 2024-01-21 10:57 | XMS_ITS | Encounter Summary ---
Author Name Unknown Organization [facility] Address [address], [place] [address] Care Team Providers Care Oracle Hrms Consultant Name Role Phone Astrid Malin MD Primary Care Provider [phone] Encounter Details Date Type Department Care Team (Latest Contact Info) Description 02/01/1995 [place] [address] [place], [place] [id number] Social History Tobacco Use Types Packs/Day Years Used Date Smoking Tobacco: Never Assessed Sex and Gender Information Value Date Recorded Sex Assigned at Not on file Gender Identity Not on file Sexual Orientation Not on file documented as of this encounter Plan of Treatment Not on file documented as of this encounter Visit Diagnoses Not on filedocumented in this encounter Care Teams Oracle Hrms Consultant Relationship Specialty Start Date End Date Astrid Malin MD [address] [place] [address] PCP - General Internal Medicine 07/09/19 documented as of this encounter
--- OUTSIDE RECORDS SUMMARY | 2024-01-21 10:57 | XMS_ITS | Referral Summary ---
Author Name Unknown Organization [facility] Address [address] [place] [id number] Phone Care Team Providers Care Sales And Events Coordinator Name Role Phone Unavailable Primary Care Provider Unavailabl e Source Comments [facility] is fully rolled out on [employer]. 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 08/12/2024 [id number] / / [id number] Dura,Duragen 3x3in [id number] Implanted:Qty : 1 on 03/07/2023 by Michelle Adrian MD at [facility] Duragen Right: Skull [employer] 11/12/2025 DUPLICATE [id number] / / [id number] Square Box Plate, 4 Hole [id number] Implanted:Qty : 2 on 03/04/2023 by Du Francois MD at [facility] Plate Right: Head [employer] 421.511 / / Paula Hole Cover, 17mm (421.554) Has Notch Cut Out - Use If Drains Placed Implanted:Qty : 1 on 03/04/2023 by Du Francois MD at [facility] Plate Right: Head [employer] 421.554 / / 4mm 400.834e Implanted:Qty : 13 on 03/04/2023 by Du Francois MD at [facility] Explanted:Qty : 7 on 03/07/2023 by Michelle Adrian MD at [facility] Screw/[place] Right: Head [employer] 400.834E / / 4mm 400.834e Implanted:Qty : 1 on 03/07/2023 by Michelle Adrian MD at [facility] Screw/[place] Right: Head [employer] [place] 400.834E / / Advance Directives For more information, please contact: [phone] * Full Code (Latest Code Status on [...]
--- OUTSIDE RECORDS SUMMARY | 2024-01-21 10:57 | XMS_ITS | Clinical Summary ---
Author Name Unknown Organization [facility] Address [place], [place] [address] Care Team Providers Care Senior Dentist Name Role Phone Astrid Malin MD Primary Care Provider +1- [phone] Allergies No known active allergies Medications Medication Sig Dispensed Refills Start Date End Date Status CALCIUM 600 600 MG (1,500 MG) TAB 0 07/23/2007 Active B COMPLEX-VITAMIN B12 TAB Once daily 0 07/24/2007 Active MULTIVITAMIN TAB take 1 tablet by oral route once daily with food 0 01/29/2008 Active ASPIRIN 81 MG TAB, DELAYED RELEASE take 1 tablet (81 mg) by oral route once daily 0 05/06/2008 Active PROVENTIL HFA 90 MCG/ACTUATION AEROSOL INHALER inhale 1 puff by inhalation route every 4-6 hours as needed 1 1 02/24/2009 Active calcium carbonate-vitamin D3, 600 mg-400 unit, (CALCIUM 600 + D) tabletIndications:O steopenia Take 1 tablet by mouth 2 times daily with meals. 0 03/02/2010 Active omega-3 fatty acids-vitamin E (FISH OIL) 1,000 mg Cap Take 1 capsule by mouth once daily. 0 03/02/2010 Active simvastatin (ZOCOR) 40 mg tablet TAKE ONE TABLET BY MOUTH IN THE EVENING 90 Tab 3 04/17/2010 Active lisinopril (ZESTRIL) 20 mg tablet Take 1 tablet by mouth once daily. 90 tablet 0 02/06/2011 Active Active Problems Problem Noted Date Diagnosed Date SOB (shortness of breath) 07/09/2019 Chronic obstructive pulmonary disease 07/09/2019 HTN (hypertension) 07/09/2019 Osteopenia 03/02/2010 Unspecified asthma(493.90) 07/23/2007 Other and unspecified hyperlipidemia 07/23/2007 Unspecified essential hypertension 07/23/2007 Immunizations Name Administration Dates Next Due Influenza, IIV3 (Age >=3 years) 07/02/2010,08/18,08/17/2005,08/11/2004 Td (Age >=7 Years) 01/20/2004 Family History Medical History Relation Name Comments Heart Disease Father [place] age 55 Hypertension Father Other Father high cholestero l Stroke Father Cancer-breast Maternal Aunt Hypertension Mother Hypertension Sister 1 Hyperlipidemia Sister 2 Relation Name Status Comments Father (Age 55) [place] Maternal Aunt Mother (Age 74) pancreatic cancer Sister 1 Sister 2 Social History Tobacco Use Types Packs/Day Years Used Date Smoking Tobacco: Never Alcohol Use Standard Drinks/Week Comments Not Asked 0 (1 standard drink = 0.6 oz pur e alcohol) Sex and Gender Information Value Date Recorded Sex Assigned at Not on file Gender Identity Not on file Sexual Orientation Not on file Obstetrics History Para Term AB IAB SAB Ectopic Multiple Livin g Live Births 1 1 1 0 0 0 0 0 0 1 Date Outcome GA Total Labor Labor/2nd/3rd Weight Sex Delivery Anes PTL Cleo A1 A5 Name Cl in Term Last Filed Vital Signs Vital Sign Reading Time Taken Comments Blood Pressure 114/67 03/02/2010 10:32 AM CDT Pulse 67 03/02/2010 10:32 AM CDT Temperature 36.7 ??C (98 ??F) 07/24/2007 3:49 PM CDT Respiratory Rate - - Oxygen Saturation 95% 07/24/2007 3:49 PM CDT Inhaled Oxygen Concentration - - Weight 70.8 kg (156 lb) 03/02/2010 10:32 AM CDT Height 162.6 cm (5' 4) 03/02/2010 10:32 AM CDT Body Mass Index 26.78 03/02/2010 10:32 AM CDT Plan of Treatment Health Maintenance Due Date Last Done Comments Tdap 1958 Depression screening for age 12+ 1959 BMI (ht and wt on same day) for age 18+ 1965 Hepatitis C screening for ag e 18-79 1965 Zoster (shingles) series for age 50+ (1 of 2) 1997 DEXA/DXA scan for age 65+ 2012 04/06/2010, 07/2008 Medicare Wellness for age 65+ 2012 Pneumococcal series for age 65+ (1 of 1 - PCV) 2012 Tetanus booster 01/19/2014 01/20/2004 COVID-19 vaccine series (1 - 2022-24 season) 2023 Influenza for age 65+ 06/13/2024 07/02/2010 , 08/18/2006, 08/17/2005, Additional history exists Procedures Procedure Name Priority Date/Time Associated Diagnosis Comments XR DXA BONE DENSITY 2 SITES AXIAL Routine 04/06/2010 8:43 AM CDT Osteopenia from Last 3 Months or Most Recently Relevant to Health Maintenance Results * XR DEXA BONE DENSITY 2 SITES (04/06/2010 8:43 AM CDT) Anatomical Region Laterality Modality Spine, HIPS, HIPL, HIPR Other Narrative 04/06/2010 1:55 PM CDT Please see scanned document for results of this study. Procedure Note Mayra Cho - 04/06/2010 Please see scanned document for results of this study. Deisy Whiteside DO DEXA from Last 3 Months or Most Recently Relevant to Health Maintenance Advance Directives Documents on File Type Date Recorded Patient Rn Prior Authorization Expl anation Healthcare Directive 11/19/2008 [facility], [facility], 11/19/2008 Care Teams Senior Dentist Relationship Specialty Start Date End Date Astrid Malin MD [address] [place] [address] PCP - General Internal Medicine 07/09/19
--- OUTSIDE RECORDS SUMMARY | 2024-01-21 10:57 | XMS_ITS | Clinical Summary ---
Author Name Unknown Organization [facility] Address [address], [place] [address] Care Team Providers Care Crime Lab Technician Name Role Phone Astrid Malin MD Primary Care Provider [phone]- [phone] Source Comments You are receiving this document as you are listed as the primary care provider,follow-up provider, or the patient has been referred to you for consultation.This is in compliance with the Medicare andThe [facility] E[facility] Incentive Program,which states Providers who transition their patient to another setting of careor provider of care or refers their patient to another provider of care shouldprovide summary care record for each transition of care or referral. Formerly [facility] Allergies No known active allergies Medications Medication Sig Dispensed Refills Start Date End Date Status atorvastatin (LIPITOR) 20 MG tablet Take 20 mg by mouth daily at bedtime. 3 07/16/2019 Active ketorolac (ACULAR) 0.5 % eye drop solution place 1 drop into the right eye by ophthalmic route twice daily. 6 06/25/2019 Active losartan (COZAAR) 25 MG tablet Take 25 mg by mouth daily. 3 06/04/2019 Active metoprolol succinate (TOPROL XL) 100 MG 24 hour release tablet Take 100 mg by mouth daily. 0 07/02/2019 Active nitroglycerin (NITROSTAT) 0.[address] 1 tablet under the tongue every 5 minutes if needed for chest pain. max 3 tablets/15 minutes. 3 05/07/2019 Active ALBUterol sulfate HFA 108 (90 Base) MCG/ACT inhaler Inhale 1-2 Puffs every 4 hours as needed for Wheezing. Active aspirin 81 MG chewable tablet Take 81 mg by mouth daily. Active calcium carbonate-vitamin D 600-400 MG-UNIT tablet Take 1 Tablet by mouth two times a day. Active vitamin B-12 (AKA: CYANOCOBALAMIN) 1000 MCG tablet Take 1,000 mcg by mouth daily. Active multivitamin with minerals tablet Take 1 Tablet by mouth daily. Active dorzolamide-timolol (COSOPT) 22.3-6.8 MG/ML eye drop solution Place 1 Drop into both eyes two times a day. 04/17/2020 Active Calcium Carbonate-Vit D-Min (CALCIUM 600+D PLUS MINERALS) 600-400 MG-UNIT tablet Take 1 Tablet by mouth. Active metoprolol succinate (TOPROL XL) 50 MG 24 hour release tablet Take 1 Tablet (50 mg) by mouth daily. 06/15/2023 Active levETIRAcetam (KEPPRA) 750 MG tablet Take by mouth. 06/05/2023 Active fluticasone-salmete rol (AIRDUO RESPICLICK) 232-14 MCG/ACT inhalerIndications: Moderate persistent asthma without complication (HRC) Inhale 1 Puff two times a day. Rinse mouth/gargle after use. 1 Each 06/23/2023 06/22/2024 Active predniSONE (DELTASONE) 10 MG tablet 3 pills for 3 days; 2 pills for 3 days; 1 pill for 3 days, 1/2 pill for 3 days off 20 Tablet 06/23/2023 Active Active Problems Problem Noted Date Diagnosed Date Malignant mesothelioma of peritoneum 09/30/2019 LIZAMA (dyspnea on exertion) 08/05/2019 COPD, severe 08/05/2019 Chronic obstructive asthma 08/05/2019 Scoliosis 08/05/2019 Chronic cough 08/05/2019 Arteriosclerosis of coronary artery 11/15/2016 Osteopenia 03/02/2010 Essential hypertension 07/23/2007 Hyperlipidemia 07/23/2007 Immunizations Name Administration Dates Next Due Flu Vac (3+ yrs) 07/02/2010, 6,08/17/2005, 004 Influenza IIV3 (Trivalent) F luzone Highdose, 65+ Yrs (92758) 07/22/2016,07/19/2015,06/10/2014 Influenza IIV4 (Quadrivalent ) Fluad, 65+ Yrs 07/26/2020 Td 01/20/2004 Zoster RZV (Shingrix) 09/27/2019 Family History Medical History Relation Name Comments Cerebrovascular Disease Father Coronary Artery Disease Father Hypertension Father Hypertension Mother Relation Name Status Comments Father Mother Social History Tobacco Use Types Packs/Day Years Used Date Smoking Tobacco: Never Passive Smoke Exposure: Yes Smokeless Tobacco: Never Tobacco Cessation:Counseling Given: Not Answered Alcohol Use Standard Drinks/Week Comments Not Currently 0 (1 standard drink = 0.6 oz pur e alcohol) Sex and Gender Information Value Date Recorded Sex Assigned at Not on file Gender Identity Not on file Sexual Orientation Not on file Last Filed Vital Signs Vital Sign Reading Time Taken Comments Blood Pressure 143/88 04/25/2020 1:04 PM CDT Pulse 89 06/23/2023 2:00 PM CDT Temperature - - Respiratory Rate - - Oxygen Saturation 92% 06/23/2023 2:00 PM CDT Inhaled Oxygen Concentration - - Weight 66.2 kg (146 lb) 06/23/2023 2:00 PM CDT Height 162.6 cm (5' 4) 06/23/2023 2:00 PM CDT Body Mass Index 25.06 06/23/2023 2:00 PM CDT Plan of Treatment Health Maintenance Due Date Last Done Comments Hep C Screening (Preventive Services) 1945 Medicare Annual Wellness Visit 1945 Dexa 2012 DTaP/Tdap/Td (2 - Tdap) 04/05/2023 04/05/2013, 01/19 COVID-19 Vaccine ( season) 2023 08/15/2022, 01/15/2022, 07/23/2021, Additional history exists Influenza (#1) 2023 07/23/2022, 07/13, 07/26/2020, Additional history exists Pneumococcal 65+ Yrs Completed 03/30/2015, 07/24/20 12 Zoster/Shingles Completed 03/07/2020, 09/12, 03/27/2012 HepA Aged Out No longer eligi ble based on patient's age to complete this topic HepB Aged Out No longer eligi ble based on patient's age to complete this topic Hib Aged Out No longer eligi ble based on patient's age to complete this topic IPV (Polio) Aged Out No longer eligi ble based on patient's age to complete this topic MCV4 Aged Out No longer eligi ble based on patient's age to complete this topic Care Teams Crime Lab Technician Relationship Specialty Start Date End Date Astrid Malin MD [address] [place] [address] PCP - General Internal Medicine 07/09/19
--- OUTSIDE RECORDS SUMMARY | 2024-01-21 10:57 | XMS_ITS | Encounter Summary ---
Author Name Unknown Organization [facility] Address [address], [place] [address] Care Team Providers Care Assistant News Director Name Role Phone Astrid Malin MD Primary Care Provider +1- [phone] Encounter Details Date Type Department Care Team (Latest Contact Info) Description 10/27/1995 [place] [address] [place], [place] [id number] Social History Tobacco Use Types Packs/Day Years Used Date Smoking Tobacco: Never Assessed Sex and Gender Information Value Date Recorded Sex Assigned at Not on file Gender Identity Not on file Sexual Orientation Not on file documented as of this encounter Plan of Treatment Not on file documented as of this encounter Visit Diagnoses Not on filedocumented in this encounter Care Teams Assistant News Director Relationship Specialty Start Date End Date Astrid Malin MD [address] [place] [address] PCP - General Internal Medicine 07/09/19 documented as of this encounter
--- OUTSIDE RECORDS SUMMARY | 2024-01-21 10:57 | XMS_ITS | Encounter Summary ---
Author Name Unknown Organization [facility] Address [address] [place] [address] Phone Care Team Providers Care Tax Preparer Name Role Phone Unavailable Primary Care Provider Unavailabl e Encounter Details Date Type Department Care Team (Late st Contact Info) Description 10/20/2023 Orders Only [place] [facility] Radiology Department [place] [address] [facility] [address] [address] Provider, [place] [address] Referral of patient (Primary Dx) Social History Tobacco Use Types Packs/Day Years Used Date Smoking Tobacco: Never Smokeless Tobacco: Never Alcohol Use Standard Drinks/Week Comments Never 0 (1 standard drink = 0.6 oz pur e alcohol) Sex and Gender Information Value Date Recorded Sex Assigned at Not on file Gender Identity Not on file Sexual Orientation Not on file documented as of this encounter Plan of Treatment Not on file documented as of this encounter Results * CT HEAD OUTSIDE FILMS (10/18/2023 7:11 AM PERIANESTHESIA NURSE) Narrative Dummy, Pweh-Cfhelm-Ivoosbmsq - 10/20/2023 6:30 AM PERIANESTHESIA NURSE Outside Film Only Outside Provider RAD OUTSIDE FILMS documented in this encounter Visit Diagnoses Diagnosis Referral of patient- Primary Referral of patient without examination or treatment documented in this encounter
--- OUTSIDE RECORDS SUMMARY | 2024-01-21 10:58 | XMS_ITS | Referral Summary ---
Author Name Unknown Organization [facility] Address [address] [place] [address] Care Team Providers Care Eviction Specialist Name Role Phone Unavailable Primary Care Provider Unavailabl e Source Comments Patient records contain information from all sites at [facility]. For routine questions regarding patient records, call [phone] during business hours, M-F 8:00 AM - 5:00 PM Central Time. Record requests for emergency care only can be directed to [phone] at any time.[facility] Allergies No known active allergies Medications Medication Sig Dispensed Refills Start Date End Date Status losartan (COZAAR) 25 mg tablet Take 25 mg by mouth daily. 1 03/12/2019 Active atorvastatin (LIPITOR) 20 mg tablet 2 01/01/2019 Active metoprolol succinate (TOPROL-XL) 50 mg 24 hr tablet Take 50 mg by mouth daily. 0 03/05/2019 Active albuterol (PROVENTIL HFA) 90 mcg/actuation inhaler Inhale. 0 02/24/[address] Active aspirin [address] tablet Take by mouth. 0 05/06/2008 Active cyanocobalamin (vitamin B-12) 1,000 mcg tablet Take 1 tablet by mouth daily. 0 01/12/2015 Active VITAMIN B COMPLEX ORAL Take by mouth. 0 07/24/2007 Active timolol (TIMOPTIC) 0.5 % ophthalmic solution INSTILL 1 DROP INTO BOTH EYES BY OPHTHALMIC ROUTE EVERY DAY IN THE MORNING. 0 07/02/2019 Active simvastatin (ZOCOR) 40 mg tablet Take 40 mg by mouth. 0 04/17/2010 Ac tive nitroglycerin (NITROSTAT) 0.[address] 1 tablet under the tongue every 5 minutes if needed for chest pain. max 3 tablets/15 minutes. 0 03/30/2015 Active multivitamin tablet Take 1 tablet by mouth daily. 0 01/12/2015 Active ketorolac (ACULAR) 0.5 % ophthalmic solution 0 03/29/2021 Active fluticasone propion-salmeteroL (AIRDUO RESPICLICK) 232-14 mcg/actuation inhaler Inhale 1 puff. 0 04/27/2021 Active dorzolamide-timoloL (COSOPT) 22.3-6.8 mg/mL ophthalmic solution 0 03/29/2021 Active calcium carbonate 1,500 mg (600 mg calcium) tablet Take by mouth. 0 07/23/2007 Activ e calcium carbonate-vit D3-min 600 mg calcium- 400 unit tablet Take 1 tablet by mouth 2 (two) times a day. 0 Active amLODIPine (NORVASC) 2.5 mg tablet Take 1 tablet by mouth daily. 0 01/12/2015 Active Active Problems Problem Noted Date Diagnosed Date Malignant Mesothelioma Of Peritoneum 09/30/2019 Coronary Artery Disease (Unspecified) 11/15/2016 Social History Tobacco Use Types Packs/Day Years Used Date Smoking Tobacco: Never Overall Financial Resource Strain (CARDIA) Answe r Date Recorded How hard is it for you to pa y for the very basics like food, housing, medical care, and heating? Not hard at all 09/05/2023 Exercise Vital Sign Answer Date Recorde d On average, how many days pe r week do you engage in moderate to strenuous exercise (like a brisk walk)? 4 days 09/05/2023 On average, how many minutes do you engage in exercise at this level? 40 min 09/05/2023 Hunger Vital Sign Answer Date Recorded Within the past 12 months, y ou worried that your food would run out before you got the money to buy more. Never true 09/05/20 23 Within the past 12 months, t he food you bought just didn't last and you didn't have money to get more. Never true 09/05/2023 PRAPARE - Transportation Answer Date Re corded In the past 12 months, has l ack of transportation kept you from medical appointments or from getting medications? No 08/14 In the past 12 months, has l ack of transportation kept you from meetings, work, or from getting things needed for daily living? No 09/05/2023 Nutrition Answer Date Recorded Nutrition: EVOO Fat Source Unknown 09/05 On average, how many serving s of fruits and vegetables do you eat per day (serving size is equal to 1 cup or approximately the size of a tennis ball)? 0-2 09/05/2023 Dental Answer Date Recorded Dental: Regular Dentist Yes 09/05/20 Employment Answer Date Recorded Employment status Retired 09/05/2023 Housing Stability Answer Date Recorded What is your living situation today? I have a [facility] place to live 09/05/2023 Sex and Gender Information Value Date Recorded Sex Assigned at Female 09/05/2023 9:52 AM DIE CUTTER Gender Identity Female 09/05/2023 9:52 AM DIE CUTTER Sexual Orientation Straight 09/05/2023 9: 52 AM DIE CUTTER Last Filed Vital Signs Vital Sign Reading Time Taken Comments Blood Pressure 176/83 04/06/2019 2:26 PM CDT Pulse 89 04/06/2019 2:26 PM CDT Temperature - - Respiratory Rate - - Oxygen Saturation - - Inhaled Oxygen Concentration - - Weight 68.3 kg (150 lb 9.2 oz) 04/06/2019 2:26 P M CDT Height 162.6 cm (5' 4) 10/01/2019 8:26 AM DIE CUTTER Body Mass Index 26.48 04/06/2019 2:26 PM CDT Plan of Treatment Not on file [address] [place] [address]
--- OUTSIDE RECORDS SUMMARY | 2024-01-21 10:58 | XMS_ITS | Clinical Summary ---
Author Name Unknown Organization [facility] Address [address] [place] [address] Care Team Providers Care Loan Specialist Name Role Phone Unavailable Primary Care Provider Unavailabl e Source Comments Patient records contain information from all sites at [facility]. For routine questions regarding patient records, call [phone] during business hours, M-F 8:00 AM - 5:00 PM Central Time. Record requests for emergency care only can be directed to [phone] at any time.[facility] Allergies No known active allergies Medications Medication [...] your living situation today? I have a [facility] place to live 09/05/2023 Sex and Gender Information Value Date Recorded Sex Assigned at Female 09/05/2023 9:52 AM APRICOT PACKER Gender Identity Female 09/05/2023 9:52 AM APRICOT PACKER Sexual Orientation Straight 09/05/2023 9: 52 AM APRICOT PACKER Last Filed Vital Signs Vital Sign Reading Time Taken Comments Blood Pressure 176/83 04/06/2019 2:26 PM CDT Pulse 89 04/06/2019 2:26 PM CDT Temperature - - Respiratory Rate - - Oxygen Saturation - - Inhaled Oxygen Concentration - - Weight 68.3 kg (150 lb 9.2 oz) 04/06/2019 2:26 P M CDT Height 162.6 cm (5' 4) 10/01/2019 8:26 AM APRICOT PACKER Body Mass Index 26.48 04/06/2019 2:26 PM CDT Plan of Treatment Health Maintenance Due Date Last Done Comments Hepatitis C Screening 1945 Office Visit for Blood Press ure Check / Re-check 1945 Potassium Level 1945 Sodium Level 1945 Creatinine Level (Kidney Fun ction Test) 10/01/2020 10/01/2019 Depression Screening (Annual PHQ-2) 10/13/2023 Fall Risk Screen (Annual) 10/13/2023 DTaP,Tdap,and Td Vaccines (3 - Td or Tdap) 07/24/2033 07/24/2023, 04/05/2013, 01/20/2004 Pneumococcal vaccine (65+ years) Completed 03/30/20 15, 07/24/2012 Zoster Vaccines Completed 03/07/2020, 09/12, 03/27/2012 Cologuard Discontinued 12/15/2021 Colorectal Cancer Screening Discontinued Influenza Vaccine Completed 07/14/2023, , 07/30/2021, Additional history exists COVID-19 Vaccine Completed 07/30/2023, 12/2021, 01/15/2022, Additional history exists CT Colonography Discontinued Colonoscopy Discontinued FIT Discontinued
--- OUTSIDE RECORDS SUMMARY | 2024-01-21 10:59 | XMS_ITS ---
Author Name Unknown Organization [facility] Address [address] [place] [address] Care Team Providers Care Flight Control Tower Operator Name Role Phone Unavailable Unavailable Unavailable Surgery Details Not on file Complications Check Surgery Details section. Procedure Estimated Blood Loss Check Surgery Details section. Procedure Findings Check Surgery Details section. Procedure Specimens Taken Check Surgery Details section.
--- NOTE | 2024-01-21 11:30 | MM_ITS ---
Patient: ANTONINA MACEDO Facility:?[facility] Patient ID:?[id number] Site Patient ID:?[id number]. Site :?[id number] Study:?XRay-Breast Bilateral 3D W/CAD-01/21/2024 11:28:52 AM Ordering Physician:Astrid Eng Final Report: BILATERAL SCREENING MAMMOGRAM WITH COMPUTER-AIDED DETECTION AND TOMOSYNTHESIS TECHNIQUE: CC and MLO views were obtained. These mammographic images have been obtained using full-field digital technique. These mammographic images were interpreted with the benefit of computer-aided detection. Breast Tomosynthesis was used in this interpretation. COMPARISON FILM: 01/16/23, 12/05/21, 05/10/21. FINDINGS: There are scattered areas of fibroglandular density. IMPRESSION: There is no radiographic evidence for malignancy. ASSESSMENT: BI-RADS Category 2: Benign RECOMMENDATION: Routine screening mammogram in 1 year. A lay language report of this examination will be provided to the patient. Jaswinder Camp M.D. Diagnostic Radiologist [email or web address] DSM/sp R& Transcribed: 4:26 p.m. SP/Dictated by: Jaswinder Camp MD @ 01/21/2024 12:06:00 PM Signed by:?Jaswinder Camp MD @01/22/2024 5:29:52 AM (Electronic Signature)
== END 2024-01-21 10:56 | disposition home or self-care (01) ==
LOC: MAMMO 10:56
PROVIDERS: PCP Internal Medicine; Visit Provider Internal Medicine
DX: Z12.31 Encounter for screening mammogram for malignant neoplasm of breast (principal)
CPT/HCPCS: 77063; 77067

== ENCOUNTER 2024-04-12 15:02 | Outpatient (CLI) | payer OTHER, MEDICARE, BC, SELFPAY ==
--- OUTSIDE RECORDS SUMMARY | 2024-04-16 09:16 | XMS_ITS ---
Author Organization [facility] Address [address] [place] [address] Care Team Providers Care Carpet Finishing Supervisor Name Role Phone Unavailable Unavailable Unavailable Surgery Details Not on file Complications Check Surgery Details section. Procedure Estimated Blood Loss Check Surgery Details section. Procedure Findings Check Surgery Details section. Procedure Specimens Taken Check Surgery Details section.
--- OUTSIDE RECORDS SUMMARY | 2024-04-16 09:16 | XMS_ITS | Clinical Summary ---
Author Organization [facility] Address [place], [place] [address] Care Team Providers Care Pattern Wheel Maker Name Role Phone Astrid Malin MD Primary Care Provider [phone] Allergies No known active allergies Medications Medication [...] History Relation Name Comments Heart Disease Father [place] age 55 Hypertension Father Other Father high cholestero l Stroke Father Cancer-breast Maternal Aunt Hypertension Mother Hypertension Sister 1 Hyperlipidemia Sister 2 Relation Name Status Comments Father (Age 55) [place] Maternal Aunt Mother (Age 74) pancreatic cancer [...] Documents on File Type Date Recorded Patient Patch Washer Expl anation Healthcare Directive 11/19/2008 [facility], [facility], 11/19/2008 Care Teams Pattern Wheel Maker Relationship Specialty Start Date End Date Astrid Malin MD [address] [place] [address] PCP - General Internal Medicine 07/09/19
--- OUTSIDE RECORDS SUMMARY | 2024-04-16 09:16 | XMS_ITS | Clinical Summary ---
Author Organization [facility] Address [address] [place] [address] Care Team Providers Care Project Development Coordinator Name Role Phone Unavailable Primary Care Provider Unavailabl e Source Comments Patient records contain information from all sites at [facility]. For routine questions regarding patient records, call [phone] during business hours, M-F 8:00 AM - 5:00 PM Central Time. Record requests for emergency care only can be directed to [phone] at any time.[facility] Allergies No known active allergies Medications [...] your living situation today? I have a [facility] to live 09/05/2023 Sex and Gender Information Value Date Recorded Sex Assigned at Female 09/05/2023 9:52 AM TRANSMITTER CHIEF Gender Identity Female 09/05/2023 9:52 AM TRANSMITTER CHIEF Sexual Orientation Straight 09/05/2023 9: 52 AM TRANSMITTER CHIEF Last Filed Vital Signs Vital Sign Reading Time Taken Comments Blood Pressure 176/83 04/06/2019 2:26 PM CDT Pulse 89 04/06/2019 2:26 PM CDT Temperature - - Respiratory Rate - - Oxygen Saturation - - Inhaled Oxygen Concentration - - Weight 68.3 kg (150 lb 9.2 oz) 04/06/2019 2:26 P M CDT Height 162.6 cm (5' 4) 10/01/2019 8:26 AM TRANSMITTER CHIEF Body Mass Index 26.48 04/06/2019 2:26 PM [...] 2023 07/30/2023, 08/15/2022, 01/15/2022, Additional history exists Influenza Vaccine (#1) 2024 , 07/23/2022, 07/30/2021, Additional history exists DTaP,Tdap,and Td Vaccines (3 - Td or Tdap) 07/24/2033 07/24/2023, 04/05/2013, 01/20/2004 Pneumococcal vaccine (65+ years) Completed 03/30/20 15, 07/24/2012 Zoster Vaccines Completed 03/07/2020, 09/12, 03/27/2012 Cologuard Discontinued 12/15/2021 Colorectal Cancer Screening Discontinued CT Colonography Discontinued Colonoscopy Discontinued FIT Discontinued Procedures Procedure Name Priority Date/Time Associated Diagnosis Comments CREATININE, POCT, B Routine 10/01/2019 8 :32 AM TRANSMITTER CHIEF from Last 3 Months or Most Recently Relevant to Health Maintenance Results * Creatinine, POCT (10/01/2019 8:32 AM TRANSMITTER CHIEF) Creatinine, POCT, B 0.9 0.6 - 1.0 mg/dL 10/01/2019 8:35 AM TRANSMITTER CHIEF PCDT Comment: ----ADDITIONAL INFORMATION---- Performed at the Point of Care Blood 10/01/2019 8:32 AM TRANSMITTER CHIEF 10/01/2019 8:36 AM TRANSMITTER CHIEF Unknown Provider LAB POCT ORDERABLES - DEVICE [facility] [address] [place] [address], [place] PCDT [facility] [address] [place] [address] from Last 3 Months or Most Recently Relevant to Health Maintenance
--- OUTSIDE RECORDS SUMMARY | 2024-04-16 09:16 | XMS_ITS | Continuity of Care Document ---
Author Organization [facility] Address [address] [address] [place] [address] Phone Care Team Providers Care Industrial Safety And Health Technician Name Role Phone PaKellie villagomez CRNA Unavailable Unavailable Allergies, Adverse Reactions, Alerts Substance [...] Longer Active Procedures Procedure Date Colonoscopy Flex; W/bx 1/mx Level Iv-surg Path Gross/micro Colonoscopy Flex; W/remov Les- Level Iv-surg Path Gross/micro Advance Directives Directive Yes / No Effective Date File Name No Information Encounters Encounter Description Practice Location Reason(s) For Visit Diagnoses Date Provider Providers Copied on Encounter [facility], [address] [address], [place], [id number], [place] tel:[phone] [facility] No Information 4 Grant Hopkins. [address] [facility] [address], [place], [id number], [place]. tel:[phone] Referring Provider: Roby Lopez, [address] [facility] [address], [place], [address] . tel:[phone] [facility], [address] [address], [place], [id number], [place] tel:[phone] [facility] GI Symptoms or Concerns (chief complaint) Screening ColonoscopyColorec kyle polyp detected on colonoscopyPersona l history of colonic polypsBenign neoplasm of transverse colonBenign neoplasm of descending colonEncounter for screening for malignant neoplasm of colonBenign neoplasm of transverse colon 4 Albert Ca. [address] [facility] [address], [place], [id number], [place]. tel:[phone] Referring Provider: Referral Self, USE FOR SELF REFERRALS. [facility], [address] [address], [place], [id number], [place] tel:[phone] [facility] No Information 4 Sergei Vargas. [address] [facility], [place], [id number], [place]. tel:[phone] [facility], [address] [address], [place], [id number], [place] tel:[phone] Kuna [facility] GI Symptoms or Concerns (chief complaint) Positive colorectal cancer screening using Cologuard testColorectal polyp detected on colonoscopyBenign neoplasm of cecumBenign neoplasm of ascending colonBenign neoplasm of descending colonOther fecal abnormalitiesBenig n neoplasm of cecum 2 Albert Ca. [address] [facility] [facility] [address], [place], [id number], [place]. tel:[phone] Referring Provider: Astrid Perez, [address] [place] [address], [address]. tel:[phone] [facility], [address] [address], [place], [id number], [place] tel:[phone] [facility] No Information 2 Ana Harris. [address] [facility], [facility] [address], [place], [id number], [place]. tel:[phone] Family History Family Member Type Diagnosis Age [...] Registry Payers Payer name Insurance type Covered democrat ID Authoriza tion(s) [employer] [place] Blue BL [id number] Social History Type Description Quantity Date Captured [...]
--- OUTSIDE RECORDS SUMMARY | 2024-04-16 09:16 | XMS_ITS | Encounter Summary ---
[facility] Address [address], [place] [address] Care Team Providers Care Rampman Name Role Phone Astrid Malin MD Primary Care Provider [phone] Encounter Details Date Type Department Care Team (Latest Contact Info) Description 10/27/1995 [place] [address] [place], [place] [id number] Social History Tobacco Use Types Packs/Day Years [...] Appointment [facility] [address] [place] [address] 07/02/2024 3:30 PM CDT Office Visit Specialty [facility] [address] [facility] [address] [place] [address] Tri Garcia MD [address] [place] [phone] documented as of this encounter Visit Diagnoses Not on filedocumented in this encounter Care Teams Rampman Relationship Specialty Start Date End Date Astrid Malin MD [address] [place] [address] PCP - General Internal Medicine 07/09/19 documented as of this encounter
--- OUTSIDE RECORDS SUMMARY | 2024-04-16 09:16 | XMS_ITS | Clinical Summary ---
Author Organization [facility] Address [address] [address] Care Team Providers Care Gas Engine Repairer Name Role Phone Astrid Malin MD Primary Care Provider [phone] Source Comments You are receiving this document as you are listed as the primary care provider,follow-up provider, or the patient has been referred to you for consultation.This is in compliance with the Medicare and[facility] EHR Incentive Program,which states Providers who transition their patient to another setting of careor provider of care or refers their patient to another provider of care shouldprovide summary care record for each transition of care or referral. [facility] Allergies No known active allergies Medications Medication [...] Telephone Specialty Center [address] [place] [address] Tri Garcia MD Symptoms from Last 3 Months Immunizations Name Administration Dates Next Due Flu Vac (3+ yrs) 07/02/2010, 6,08/17/2005, 004 Influenza IIV3 (Trivalent) F heidi Highdose, 65+ Yrs (94687) 07/22/2016,07/19/2015,06/10/2014 Influenza IIV4 (Quadrivalent ) Fluad, 65+ [...] CDT Appointment [facility] [address] [place] [address] 07/02/2024 3:30 PM CDT Office Visit [facility]ty [facility] [address] [place] [address] Tri Garcia MD [address] [facility] [address] [place] [phone] Health Maintenance Due Date Last Done Comments [...] age to complete this topic Care Teams Gas Engine Repairer Relationship Specialty Start Date End Date Astrid Malin MD [address] [facility] [address] PCP - General Internal Medicine 07/09/19
--- OUTSIDE RECORDS SUMMARY | 2024-04-16 09:16 | XMS_ITS | Referral Summary ---
Author Organization [facility] Address [address] [place] [address] Care Team Providers Care Sterile Processing Technician Name Role Phone Unavailable Primary Care Provider Unavailabl e Source Comments Patient records contain information from all sites at [facility]. For routine questions regarding patient records, call [phone] during business hours, M-F 8:00 AM - 5:00 PM Central Time. Record requests for emergency care only can be directed to [phone] at any time.[facility] Allergies No known active allergies Medications [...] your living situation today? I have a [facility] to live 09/05/2023 Sex and Gender Information Value Date Recorded Sex Assigned at Female 09/05/2023 9:52 AM MAGNETIC PROSPECTOR Gender Identity Female 09/05/2023 9:52 AM MAGNETIC PROSPECTOR Sexual Orientation Straight 09/05/2023 9: 52 AM MAGNETIC PROSPECTOR Last Filed Vital Signs Vital Sign Reading Time Taken Comments Blood Pressure 176/83 04/06/2019 2:26 PM CDT Pulse 89 04/06/2019 2:26 PM CDT Temperature - - Respiratory Rate - - Oxygen Saturation - - Inhaled Oxygen Concentration - - Weight 68.3 kg (150 lb 9.2 oz) 04/06/2019 2:26 P M CDT Height 162.6 cm (5' 4) 10/01/2019 8:26 AM MAGNETIC PROSPECTOR Body Mass Index 26.48 04/06/2019 2:26 PM CDT Plan of Treatment Not on file Procedures Procedure Name Priority Date/Time Associated Diagnosis Comments CREATININE, POCT, B Routine 10/01/2019 8 :32 AM MAGNETIC PROSPECTOR from Last 3 Months or Most Recently Relevant to Health Maintenance Results * Creatinine, POCT (10/01/2019 8:32 AM MAGNETIC PROSPECTOR) Creatinine, POCT, B 0.9 0.6 - 1.0 mg/dL 10/01/2019 8:35 AM MAGNETIC PROSPECTOR PCDT Comment: ----ADDITIONAL INFORMATION---- Performed at the Point of Care Blood 10/01/2019 8:32 AM MAGNETIC PROSPECTOR 10/01/2019 8:36 AM MAGNETIC PROSPECTOR Unknown Provider LAB POCT ORDERABLES - DEVICE [facility] PERFORM[facility] LABS [address] [facility] [place] [address] PCDT [facility] POC [address] [place] [address] from Last 3 Months or Most Recently Relevant to Health Maintenance
--- OUTSIDE RECORDS SUMMARY | 2024-04-16 09:16 | XMS_ITS | Encounter Summary ---
Author Organization [facility] Address [address], [place] [address] Care Team Providers Care Online Facilitator Name Role Phone Astrid Malin MD Primary Care Provider [phone]- [phone] Reason for Visit * Reason Comments Symptoms Encounter Details Date Type Department Care Team (Late st Contact Info) Description 02/02/2024 Telephone Specialty [facility] [address] Pul[address] Medicine [address] [place], [place] [address] Tri Garcia MD [address] [facility] [address] [place] [phone] Symptoms Social History Tobacco Use Types Packs/Day [...] as of this encounter Nursing Notes * nAa Figueroa RN - 02/02/2024 9:54 AM CDT [...] to sign in Dr Garcia' absence. [facility] Callback: [phone] Detailed VM: Yes documented in this encounter Plan of Treatment Upcoming Encounters Date Type Department Care Team (Late st Contact Info) Description 07/02/2024 3:00 PM CDT Appointment [facility] [address] [place] [address] 07/02/2024 3:30 PM CDT Office Visit Specialty Center [address] [place] [address] Tri Garcia MD [address] [facility] [address] [place] [address] documented as of this encounter Visit Diagnoses Diagnosis COPD, severe (HRC)- Primary Chronic airway obstruction, not elsewhere classified documented in this encounter Care Teams Online Facilitator Relationship Specialty Start Date End Date Astrid Malin MD [address] [place] [address] PCP - General Internal Medicine 07/09/19 documented as of this encounter
--- OUTSIDE RECORDS SUMMARY | 2024-04-16 09:16 | XMS_ITS | Encounter Summary ---
Author Organization [facility] Address [address], [place] [address] Care Team Providers Care Electrical And Radio Aircraft Mechanic Name Role Phone Astrid Malin MD Primary Care Provider +1- [phone] Encounter Details Date Type Department Care Team (Latest Contact Info) Description 02/01/1995 [place] [address] [place], [place] [id number] Social History Tobacco Use Types Packs/Day Years [...] Appointment [facility] [address] [place] [address] 07/02/2024 3:30 PM CDT Office Visit Specialty Center [address] [place] [address] Tri Garcia MD [address] [facility] [address] [place] [phone] documented as of this encounter Visit Diagnoses Not on filedocumented in this encounter Care Teams Electrical And Radio Aircraft Mechanic Relationship Specialty Start Date End Date Astrid Malin MD [address] [place] [address] PCP - General Internal Medicine 07/09/19 documented as of this encounter
== END 2024-04-12 15:03 | disposition home or self-care (01) ==
LOC: AMB 04-16 09:14
PROVIDERS: PCP Internal Medicine; Visit Provider Family Medicine
DX: T14.90XA Injury, unspecified, initial encounter (principal); V43.62XA Car passenger injured in collision with other type car in traffic accident, initial encounter; Y92.481 Parking lot as the place of occurrence of the external cause

== ENCOUNTER 2024-04-12 16:08 | Emergency (ER) | payer OTHER, MEDICARE, BC, SELFPAY ==
[2024-04-12] VITALS (16 sets, daily range): BP systolic 144–188; BP diastolic 67–93; PULSE 74–94; RESP 20; TEMP 36.6; O2SAT 89–97; BMI 24.5
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
--- NOTE | 2024-04-12 17:22 | CRLHL7_ITS ---
For Patients: As a result of the Century Cures Act, medical imaging exams and procedure reports are released immediately into your electronic medical record. You may view this report before your referring provider. If you have questions, please contact your health care provider. INDICATION: Trauma. TECHNIQUE: CT cervical spine without contrast. COMPARISON: None. FINDINGS: Vertebrae: Alignment is normal. Acute displaced fracture of the right T2 transverse foramen. There are no fractures or suspicious bony lesions. Discs and facet joints: There are diffuse degenerative changes in the disc spaces and facet joints. Extraspinal findings: Paraspinous soft tissues are unremarkable. IMPRESSION: 1. Acute displaced fracture of the right T2 transverse foramen. Recommend CTA of the neck. 2. Multilevel degenerative spondylosis. Please note that all CT scans at this facility use dose modulation, iterative reconstruction, and/or weight-based dosing when appropriate to reduce radiation dose to as low as reasonably achievable. Dictated by Nikc Brewster MD @ 04/12/2024 8:11:06 PM (Electronically Signed)
--- NOTE | 2024-04-12 17:22 | CRLHL7_ITS ---
For Patients: As a result of the Century Cures Act, medical imaging exams and procedure reports are released immediately into your electronic medical record. You may view this report before your referring provider. If you have questions, please contact your health care provider. INDICATION: Trauma. TECHNIQUE: CT chest, abdomen and pelvis acquired with 100 cc Omnipaque 350 IV contrast. COMPARISON: None. FINDINGS: CHEST: Cardiovascular structures: Heart size is normal. Thoracic aorta and main pulmonary artery are normal in caliber. Mediastinum and cassidy: No mass or adenopathy. Lungs and pleura: Scattered atelectasis. Tree-in-bud nodularity in the right middle lobe and lingula, likely chronic infection. No infiltrates, or effusions. Scattered pleural calcifications. No pneumothorax. Chest wall and axilla: No mass or adenopathy. Bones: No acute fracture or dislocation. ABDOMEN AND PELVIS: Liver: Unremarkable. No sign of acute injury. Gallbladder and bile ducts: Unremarkable. Pancreas: Unremarkable. Spleen: Unremarkable. No sign of acute injury. Adrenal glands: Unremarkable. Kidneys: Unremarkable. GI tract: Unremarkable. Vascular structures: Aortoiliac arterial calcifications.. Mesenteric arteries are patent. Lymph nodes: Unremarkable. Miscellaneous: Unremarkable. No free air or significant free fluid. Pelvic Organs: Moderately distended bladder.. Bones: No acute fracture or dislocation. IMPRESSION: No acute intrathoracic or intra-abdominal/pelvic abnormality. Additional chronic findings as above. Please note that all CT scans at this facility use dose modulation, iterative reconstruction, and/or weight-based dosing when appropriate to reduce radiation dose to as low as reasonably achievable. Dictated by Nick Brewster MD @ 04/12/2024 7:51:43 PM (Electronically Signed)
--- NOTE | 2024-04-12 17:23 | CRLHL7_ITS ---
For Patients: As a result of the Century Cures Act, medical imaging exams and procedure reports are released immediately into your electronic medical record. You may view this report before your referring provider. If you have questions, please contact your health care provider. INDICATION: Trauma. TECHNIQUE: CT head without contrast. COMPARISON: None. FINDINGS: CSF spaces: Within normal limits for age. Brain parenchyma and extra-axial spaces: Mild chronic white matter ischemic disease. The reeder-white differentiation is normal. No sign of mass, hemorrhage, or midline shift. No extra-axial fluid collection. Skull base and calvarium: Right frontal craniotomy. The visualized paranasal sinuses and mastoid air cells demonstrate no acute or significant findings. The visualized orbits are grossly unremarkable. No skull fractures. IMPRESSION: No acute intracranial abnormality. Please note that all CT scans at this facility use dose modulation, iterative reconstruction, and/or weight-based dosing when appropriate to reduce radiation dose to as low as reasonably achievable. Dictated by Nick Brewster MD @ 04/12/2024 7:54:45 PM (Electronically Signed)
--- OUTSIDE RECORDS SUMMARY | 2024-04-12 17:46 | XMS_ITS | Encounter Summary ---
Author Organization [facility] Address [address] [address] Care Team Providers Care Supervisor [place]ro[place] Name Role Phone Astrid Malin MD Primary Care Provider [phone] Reason for Visit * Reason Comments Symptoms Encounter Details Date Type Department Care Team (Late st Contact Info) Description 02/02/2024 Telephone [facility] Pulmonary Medicine [address] [facility] [address] [place], [place] [address] Tri Garcia MD [address] [facility] [id number] [place] [id number] Symptoms Social History Tobacco Use Types Packs/Day Years Used Date Smoking Tobacco: Never Passive Smoke Exposure: Yes Smokeless Tobacco: Never Alcohol Use Standard Drinks/Week Comments Not Currently 0 (1 standard drink = 0.6 oz pur e alcohol) Sex and Gender Information Value Date Recorded Sex Assigned at Not on file Gender Identity Not on file Sexual Orientation Not on file documented as of this encounter Nursing Notes * Ana Figueroa RN - 02/02/2024 9:54 AM CDT Called patient and informed her that rx had been sent to pharmacy. Patient verbalized understandingand had no further questions. * Lopez Velasquez MD - 02/02/2024 9:32 AM CDT signed * Dariela Kumar RN - 02/02/2024 8:49 AM CDT HIGH PRIORITY. PLEASE RESPOND WITHIN 24 HOURS. THANK YOU. Patient calling in to report pulmonary symptoms. Pulmonary Diagnosis: Asthma Pulmonary Provider: Dr Garcia SOB: No Fever: No Wheezing: Yes Cough: Yes Sputum: Yes Color: Yellow Chest tightness: No Chest pain: No Sore throat: No Sinus congestion: Yes, little Edema: No On O2? No Liters per Minute: O2 sat% NA Recent steroids/antibiotics: No Current pulmonary medications: Advair BID, Albuterol prn Comments: Caught a cold a week ago and feels it has settled into her chest. Requesting abx. Declines needing prednisone. Rx pended if ok to sign in Dr Garcia' absence. 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
--- OUTSIDE RECORDS SUMMARY | 2024-04-12 17:46 | XMS_ITS | Clinical Summary ---
Author Organization [facility] Address [place], [place] [address] Care Team Providers Care Home Delivery Driver Name Role Phone Astrid Malin MD Primary Care Provider [phone]- [phone] Allergies No known active allergies Medications Medication [...] History Relation Name Comments Heart Disease Father NM age 55 Hypertension Father Other Father high cholestero l Stroke Father Cancer-breast Maternal Aunt Hypertension Mother Hypertension Sister 1 Hyperlipidemia Sister 2 Relation Name Status Comments Father (Age 55) NM Maternal Aunt Mother (Age 74) pancreatic cancer [...] Outcome GA Total Labor Labor/2nd/3rd Weight Sex Type Anes PTL Cleo A1 A5 Name Clin Term Last Filed Vital Signs Vital Sign [...] Documents on File Type Date Recorded Patient Gastroenterology Teacher Expl anation Healthcare Directive 11/19/2008 [facility], [facility], 11/19/2008 Care Teams Home Delivery Driver Relationship Specialty Start Date End Date Astrid Malin MD [address] [place] [address] PCP - General Internal Medicine 07/09/19
--- OUTSIDE RECORDS SUMMARY | 2024-04-12 17:46 | XMS_ITS | Clinical Summary ---
Author Organization [facility] Address [address], [place] [address] Care Team Providers Care Supervisor Paper Coating Name Role Phone Astrid Malin MD Primary Care Provider +1- [phone] Source Comments You are receiving this document as you are listed as the primary care provider,follow-up provider, or the patient has been referred to you for consultation.This is in compliance with the Medicare and[facility] Cent[facility] EHR Incentive Program,which states Providers who transition their patient to another setting of careor provider of care or refers their patient to another provider of care shouldprovide summary care record for each transition of care or referral. [facility] Allergies No known active allergies Medications Medication [...] day. Rinse mouth/gargle after use. 1 Each 11 06/23/2023 06/22/2024 Active predniSONE (DELTASONE) 10 MG [...] Osteopenia 03/02/2010 Essential hypertension 07/23/2007 Hyperlipidemia 07/23/2007 Encounters Date Type Department Care Team Description 02/02/2024 Telephone [facility] Pulmonary Medicine [address] [place] [address] Tri Garcia MD Symptoms from Last 3 Months Immunizations Name Administration Dates Next Due Flu Vac (3+ yrs) 07/02/2010, 6,08/17/2005, 004 Influenza IIV3 (Trivalent) F heidi Highdose, 65+ Yrs (70795) 07/22/2016,07/19/2015,06/10/2014 Influenza IIV4 (Quadrivalent ) Fluad, 65+ [...] 06/23/2023 2:00 PM CDT Plan of Treatment Upcoming Encounters Date Type Department Care Team (Late st Contact Info) Description 07/02/2024 3:00 PM CDT Appointment [facility] Pulmonary Lab [address] [place] [address] 07/02/2024 3:30 PM CDT Office Visit [facility] Pulmonary Medicine [address] [place] [address] Tri Garcia MD [address] [facility] [address] [place] [phone] Health Maintenance Due Date Last Done Comments Hep C Screening (Preventive Services) 1945 Medicare Annual Wellness Visit 1945 Dexa 2012 DTaP/Tdap/Td (2 - Tdap) 04/05/2023 04/05/2013, 01/19 COVID-19 Vaccine ( season) 2023 08/15/2022, 01/15/2022, 07/23/2021, Additional history exists Influenza (Season Ended) 2024 022, 07/30/2021, 07/26/2020, Additional history exists Pneumococcal 65+ Yrs [...] age to complete this topic Care Teams Supervisor Paper Coating Relationship Specialty Start Date End Date Astrid Malin MD [address] [facility] [address] PCP - General Internal Medicine 07/09/19
--- OUTSIDE RECORDS SUMMARY | 2024-04-12 17:46 | XMS_ITS | Encounter Summary ---
Author Organization [facility] Address [address], [place] [address] Care Team Providers Care Precision Filer Hand Name Role Phone Astrid Malin MD Primary Care Provider +1- [phone] Encounter Details Date Type Department Care Team (Latest Contact Info) Description 10/27/1995 [place] [address] [place], [place] [id number] Social History Tobacco Use Types Packs/Day Years Used Date Smoking Tobacco: Never Assessed Sex and Gender Information Value Date Recorded Sex Assigned at Not on file Gender Identity Not on file Sexual Orientation Not on file documented as of this encounter Plan of Treatment Upcoming Encounters Date Type Department Care Team (Late st Contact Info) Description 07/02/2024 3:00 PM CDT Appointment [facility] Pulmonary Lab [address] [place] [address] 07/02/2024 3:30 PM CDT Office Visit [facility] 39[facility] Pulmonary Medicine [address] [place] [address] Tri Garcia MD [address] [facility] [address] [place] [phone] documented as of this encounter Visit Diagnoses Not on filedocumented in this encounter Care Teams Precision Filer Hand Relationship Specialty Start Date End Date Astrid Malin MD [address] [place] [address] PCP - General Internal Medicine 07/09/19 documented as of this encounter
--- OUTSIDE RECORDS SUMMARY | 2024-04-12 17:46 | XMS_ITS | Encounter Summary ---
[facility] Address [address], [place] [address] Care Team Providers Care Director Data Name Role Phone Astrid Malin MD Primary Care Provider +1- [phone] Encounter Details Date Type Department Care Team (Latest Contact Info) Description 02/01/1995 [place] [address] [place], [place] [id number] Social History Tobacco Use Types Packs/Day Years [...] Appointment [facility] Pulmonary Lab [address] [place] [address] 07/02/2024 3:30 PM CDT Office Visit [facility]ty [facility] 39[facility] Pulmonary Medicine [address] [place] [address] Tri Garcia MD [address] [facility] [address] [place] [phone] documented as of this encounter Visit Diagnoses Not on filedocumented in this encounter Care Teams Director Data Relationship Specialty Start Date End Date Astrid Malin MD [address] [place] [address] PCP - General Internal Medicine 07/09/19 documented as of this encounter
--- OUTSIDE RECORDS SUMMARY | 2024-04-12 17:47 | XMS_ITS ---
Author Organization [facility] Address [address] [place] [address] Care Team Providers Care Shipping Coordinator Name Role Phone Unavailable Unavailable Unavailable Surgery Details Not on file Complications Check Surgery Details section. Procedure Estimated Blood Loss Check Surgery Details section. Procedure Findings Check Surgery Details section. Procedure Specimens Taken Check Surgery Details section.
--- OUTSIDE RECORDS SUMMARY | 2024-04-12 17:47 | XMS_ITS | Clinical Summary ---
Author Organization [facility] Address [address] [place] [address] Care Team Providers Care Therapy Director Name Role Phone Unavailable Primary Care Provider Unavailabl e Source Comments Patient records contain information from all sites at [facility]. For routine questions regarding patient records, call [phone] during business hours, M-F 8:00 AM - 5:00 PM Central Time. Record requests for emergency care only can be directed to [phone] at any time.[facility] Allergies No known active allergies Medications Medication Sig Dispensed Refills Start Date End Date Status losartan (COZAAR) 25 mg tablet Take 25 mg by mouth daily. 1 03/12/2019 Active atorvastatin (LIPITOR) 20 mg tablet 2 01/01/2019 Active metoprolol succinate (TOPROL-XL) 50 mg 24 hr tablet Take 50 mg by mouth daily. 0 03/05/2019 Active albuterol (PROVENTIL HFA) 90 mcg/actuation inhaler Inhale. 02/24/2009 Active aspirin [address] tablet Take by mouth. 05/06/2008 Active cyanocobalamin (vitamin B-12) 1,000 mcg tablet Take 1 tablet by mouth daily. 01/12/2015 Active VITAMIN B COMPLEX ORAL Take by mouth. 07/24/2007 Active timolol (TIMOPTIC) 0.5 % ophthalmic solution INSTILL 1 DROP INTO BOTH EYES BY OPHTHALMIC ROUTE EVERY DAY IN THE MORNING. 07/02/2019 Active simvastatin (ZOCOR) 40 mg tablet Take 40 mg by mouth. 04/17/2010 Ac tive nitroglycerin (NITROSTAT) 0.[address] 1 tablet under the tongue every 5 minutes if needed for chest pain. max 3 tablets/15 minutes. 03/30/2015 Active multivitamin tablet Take 1 tablet by mouth daily. 01/12/2015 Active ketorolac (ACULAR) 0.5 % ophthalmic solution 03/29/2021 Active fluticasone propion-salmeteroL (AIRDUO RESPICLICK) 232-14 mcg/actuation inhaler Inhale 1 puff. 04/27/2021 Active dorzolamide-timoloL (COSOPT) 22.3-6.8 mg/mL ophthalmic solution 03/29/2021 Active calcium carbonate 1,500 mg (600 mg calcium) tablet Take by mouth. 07/23/2007 Activ e calcium carbonate-vit D3-min 600 mg calcium- 400 unit tablet Take 1 tablet by mouth 2 (two) times a day. Active amLODIPine (NORVASC) 2.5 mg tablet Take 1 tablet by mouth daily. 01/12/2015 Active Active Problems Problem Noted Date [...] your living situation today? I have a [facility] place to live 09/05/2023 Sex and Gender Information Value Date Recorded Sex Assigned at Female 09/05/2023 9:52 AM SURVEYOR Gender Identity Female 09/05/2023 9:52 AM SURVEYOR Sexual Orientation Straight 09/05/2023 9: 52 AM SURVEYOR Last Filed Vital Signs Vital Sign Reading Time Taken Comments Blood Pressure 176/83 04/06/2019 2:26 PM CDT Pulse 89 04/06/2019 2:26 PM CDT Temperature - - Respiratory Rate - - Oxygen Saturation - - Inhaled Oxygen Concentration - - Weight 68.3 kg (150 lb 9.2 oz) 04/06/2019 2:26 P M CDT Height 162.6 cm (5' 4) 10/01/2019 8:26 AM SURVEYOR Body Mass Index 26.48 04/06/2019 2:26 PM CDT Plan of Treatment Health Maintenance Due Date Last Done Comments Hepatitis C Screening 1945 Office Visit for Blood Press ure Check / Re-check 1945 Potassium Level 1945 Sodium Level 1945 Creatinine Level (Kidney Fun ction Test) 10/01/2020 10/01/2019 Depression Screening (Annual PHQ-2) 10/13/2023 Fall Risk Screen (Annual) 10/13/2023 COVID-19 Vaccine (2022-2 4 season) 2023 07/30/2023, 08/15/2022, 01/15/2022, Additional history exists DTaP,Tdap,and Td Vaccines (3 - Td or Tdap) 07/24/2033 07/24/2023, 04/05/2013, 01/20/2004 Pneumococcal vaccine (65+ years) Completed 03/30/20 15, 07/24/2012 Zoster Vaccines Completed 03/07/2020, 09/12, 03/27/2012 Cologuard Discontinued 12/15/2021 Colorectal Cancer Screening Discontinued Influenza Vaccine Completed 07/14/2023, , 07/30/2021, Additional history exists CT Colonography Discontinued Colonoscopy Discontinued FIT Discontinued Procedures Procedure Name Priority Date/Time Associated Diagnosis Comments CREATININE, POCT, B Routine 10/01/2019 8 :32 AM SURVEYOR from Last 3 Months or Most Recently Relevant to Health Maintenance Results * Creatinine, POCT (10/01/2019 8:32 AM SURVEYOR) Creatinine, POCT, B 0.9 0.6 - 1.0 mg/dL 10/01/2019 8:35 AM SURVEYOR PCDT Comment: ----ADDITIONAL INFORMATION---- Performed at the Point of Care Blood 10/01/2019 8:32 AM SURVEYOR 10/01/2019 8:36 AM SURVEYOR Unknown Provider LAB POCT ORDERABLES - DEVICE [facility] PERFORMING LABS [address] [place] [address], [facility] PCDT [facility] POC [address] [place] [address] from Last 3 Months or Most Recently Relevant to Health Maintenance
--- OUTSIDE RECORDS SUMMARY | 2024-04-12 17:47 | XMS_ITS | Continuity of Care Document ---
Author Organization [facility] Address [address] [address] [place] [address] Phone Care Team Providers Care Cloth Reeler Name Role Phone Albert CARO, Roby Unavailable Unavailable Allergies, Adverse Reactions, Alerts Substance Reaction Status Criticality No Known Allergies Active No Inform ation Medications Medication Instructions Dosage Effective Dates (start - stop) Status Comments metoprolol succinate ER 50 mg tablet,extended release 24 hr take 1 tablet by oral route every day 50 MG - Active albuterol sulfate HFA 90 mcg/actuation aerosol inhaler [...] 25 mg tablet take 1 tablet by oral route every day 25 MG - Active metoprolol succinate ER 100 mg tablet,extended release 24 hr take 1 tablet by oral route every day 100 MG - No Longer Active Procedures Procedure Date Colonoscopy Flex; W/remov Les- Level Iv-surg Path Gross/micro Advance Directives Directive Yes / No Effective Date File Name Resuscitation Not Answered N/A N/A Life Support Not Answered N/A N/A Intubation Not Answered N/A N/A Antibiotics Not Answered N/A N/A IV Fluid Support Not Answered N/A N/A Tube Feed Not Answered N/A N/A Other Directive N/A N/A WARNING:The information contained in this section is historical and is provided for information only and does not constitute a legal document or any assurance that the information is still accurate. Please verify the information with the francis of the legal document before using it for clinical purposes. Encounters Encounter Description Practice Location Reason(s) For Visit Diagnoses Date Provider Providers Copied on Encounter [facility], [address] [address], [place], [id number], [place] tel:[phone] [facility] GI Symptoms or Concerns (chief complaint) Screening ColonoscopyColorec kyle polyp detected on colonoscopy 4 Albert Ca. [address] [facility], [place], [id number], [place]. tel:[phone] Referring Provider: Referral Self, USE FOR SELF REFERRALS. [facility], [address] [address], [place], [id number], [place] tel:[phone] [facility] No Information 4 Sergei Vargas. [address] [facility], [address], [place], [place], [id number], [place]. tel:[phone] [facility], [address] [address], [place], [id number], [place] tel:[phone] [facility] GI Symptoms or Concerns (chief complaint) Positive colorectal cancer screening using Cologuard testColorectal polyp detected on colonoscopyBenign neoplasm of cecumBenign neoplasm of ascending colonBenign neoplasm of descending colonOther fecal abnormalitiesBenig n neoplasm of cecum 2 Albert Ca. [address] [facility], [address], [place], [place], [id number], [place]. tel:[phone] Referring Provider: Astrid Malin MD , [address] [place] [address], [place], [address]. tel:[phone] [facility], [address] [address], [place], [place], [id number], [place] tel:[phone] [facility] No Information 2 Ana Harris. [address] [facility], [address], [place], [place], [id number], [place]. tel:[phone] Family History Family Member Type Diagnosis Age At Onset Mother Problem (finding) malignant neoplasm of p ancreas Immunizations Vaccine Date Status Comments SARS-COV-2 (COVID-19) vaccin e, mRNA, spike protein, LNP, preservative free, 50 mcg/0.5 mL dose administered Note: [facility] bi-direct ional interface ; Source: Other Registry tetanus toxoid, reduced diphtheria toxoid, and acellular pertussis vaccine, adsorbed administered Note: [facility] b i-directional interface ; Source: Other Registry Respiratory syncytial virus (RSV), vaccine, bivalent, protein subunit RSV prefusion F, diluent reconstituted, 0.5 mL, preservative free administered Note: [facility] bi-direct ional interface ; Source: Other Registry influenza, seasonal vaccine, quadrivalent, adjuvanted, 0.5mL dose, preservative free administered Note: [facility] bi-di rectional interface ; Source: Other Registry SARS-COV-2 (COVID-19) vaccin e, mRNA, spike protein, LNP, bivalent, preservative free, 30 mcg/0.3 mL dose, arabella-sucrose formulation administered Note: [facility] bi-direct ional interface ; Source: Other Registry influenza, high-dose seasona l, quadrivalent, 0.7mL dose, preservative free administered Note: [facility] bi-direct ional interface ; Source: Other Registry SARS-COV-2 (COVID-19) vaccin e, mRNA, spike protein, LNP, preservative free, 30 mcg/0.3mL dose administered Note: [facility] bi-direct ional interface ; Source: Other Registry influenza, high-dose seasona l, quadrivalent, 0.7mL dose, preservative free administered Note: [facility] bi-direct ional interface ; Source: Other Registry influenza, high-dose seasona l, quadrivalent, .7mL dose, [...] Other Registry influenza, seasonal vaccine, quadrivalent, adjuvanted, 0.5mL dose, preservative free administered Note: [facility] bi-di rectional interface ; Source: Other Registry influenza, seasonal [...] Registry Payers Payer name Insurance type Covered constitution party ID Authoriza tierum(s) Blue Cross [place] Blue BL [id number] Social History Type Description Quantity Date Captured Comments Alcohol Use Details Unknown Caffeine Use Details Unknown Tobacco Use Status undefined Smoking Status Never smoker Sex Female Vital Signs Date / Time: Height Weight BMI Pulse Rate Blood Pressure Temperature Respiratory Rate Body Surface Area Head Circumference Head Circ. Percentile Wt./Jonathan. Percentile BMI percentile Pulse Ox Inhaled Ox 12:17 PM 63.00 in 64.850 kg (143.00 lbs) 25.3 0 kg/m eter (2) 80 /min 134/77 mm[Hg] 0.00 F 16 /min 99 % 1:44 PM 59 /min 114/55 mm[Hg] 16 /min 98 % 2:06 PM 68 /min 119/66 mm[Hg] 16 /min 96 % Chief Complaint And Reason For Visit From encounter dated '04/12/2024 13:00'. GI Symptoms or Concerns (chief complaint) Reason For Referral Reason For Referral No Information History Of Present Illness Encounter Date Complaint History Of Prese nt Illness GI Symptoms or Concerns GI Symptoms or Concerns Functional Status Date Functional Assessmen t No Information Instructions Date Instruction Additional Infor mation Diverticulosis/Diverticulitis Re lated to Colorectal polyp detected on colonoscopy Colon Polyps Related to Color ectal polyp detected on colonoscopy Hemorrhoids Related to Color ectal polyp detected on colonoscopy Colon Cancer Prevention Related to Colorectal polyp detected on colonoscopy high fiber diet Related to Color ectal polyp detected on colonoscopy Diverticulosis/Diverticulitis Re lated to Colorectal polyp detected on colonoscopy Colon Polyps Related to Color ectal polyp detected on colonoscopy High Fiber Diet Related to Color ectal polyp detected on colonoscopy Colon Cancer Prevention Related to Colorectal polyp detected on colonoscopy Assessments Type Assessment Date assessment Screening Colonoscopy assessment Colorectal polyp detected on col onoscopy Patient Care Teams Name Effective Dates (start - stop) Status Members No Information
--- OUTSIDE RECORDS SUMMARY | 2024-04-12 17:47 | XMS_ITS | Referral Summary ---
Author Organization [facility] Address [address] [place] [address] Care Team Providers Care Radar Air Traffic Controller Name Role Phone Unavailable Primary Care Provider Unavailabl e Source Comments Patient records contain information from all sites at [facility]. For routine questions regarding patient records, call [phone] during business hours, M-F 8:00 AM - 5:00 PM Central Time. Record requests for emergency care only can be directed to [phone] at any time.[facility] Allergies No known active allergies [...] your living situation today? I have a [facility] place to live 09/05/2023 Sex and Gender Information Value Date Recorded Sex Assigned at Female 09/05/2023 9:52 AM TABLE HAND Gender Identity Female 09/05/2023 9:52 AM TABLE HAND Sexual Orientation Straight 09/05/2023 9: 52 AM TABLE HAND Last Filed Vital Signs Vital Sign Reading Time Taken Comments Blood Pressure 176/83 04/06/2019 2:26 PM CDT Pulse 89 04/06/2019 2:26 PM CDT Temperature - - Respiratory Rate - - Oxygen Saturation - - Inhaled Oxygen Concentration - - Weight 68.3 kg (150 lb 9.2 oz) 04/06/2019 2:26 P M CDT Height 162.6 cm (5' 4) 10/01/2019 8:26 AM TABLE HAND Body Mass Index 26.48 04/06/2019 2:26 PM CDT Plan of Treatment Not on file Procedures Procedure Name Priority Date/Time Associated Diagnosis Comments CREATININE, POCT, B Routine 10/01/2019 8 :32 AM TABLE HAND from Last 3 Months or Most Recently Relevant to Health Maintenance Results * Creatinine, POCT (10/01/2019 8:32 AM TABLE HAND) Creatinine, POCT, B 0.9 0.6 - 1.0 mg/dL 10/01/2019 8:35 AM TABLE HAND PCDT Comment: ----ADDITIONAL INFORMATION---- Performed at the Point of Care Blood 10/01/2019 8:32 AM TABLE HAND 10/01/2019 8:36 AM TABLE HAND Unknown Provider LAB POCT ORDERABLES - DEVICE [facility] PERFORMING LABS [address] [place], [place] [address] PCDT [facility] POC [address] [place] [address] from Last 3 Months or Most Recently Relevant to Health Maintenance
[2024-04-12 18:10] LABS: Basophils Absolute Auto 0.02 K/uL (0.00-0.30); Basophils Percent Auto 0.2 % (0.0-3.0); Eosinophils Absolute Auto 0.06 K/uL (0.00-0.50); Eosinophils Percent Auto 0.7 % (0.0-7.0); Hematocrit 40.9 % (33.0-51.0); Hemoglobin* 13.6 gm/dL (12.0-16.0); Immature Granulocytes Abs Auto 0.04 K/uL (0.00-0.30); Immature Granulocytes Pct Auto 0.4 %; Lymphocytes Percent Auto 7.9 % (20-44); Mean Corpuscular HGB Conc 33 gm/dL (32-36); Mean Corpuscular Hemoglobin 32 pg (26-34); Mean Corpuscular Volume 96 fL (80-100); Monocytes Percent Auto 8.4 % (0.0-11.0); Neutrophils Percent Auto 82.4 % (42.0-72.0); Platelet Count* 239 K/uL (140-440); RDW Coefficient of Variation % 12.7 % (11.5-15.5); Red Blood Count 4.26 m/uL (4.00-5.20)
[2024-04-12 18:15] LABS: Slide Review Reflex No
[2024-04-12 18:23] LABS: Chloride* 106 mmol/L (96-114); Potassium* 3.5 mmol/L (3.6-5.1); Sodium* 137 mmol/L (135-149)
[2024-04-12 18:25] LABS: Prothrombin Time 12.6 Seconds
[2024-04-12 18:26] LABS: Anion Gap 9 mEq/L (7-15); Blood Urea Nitrogen* 15 mg/dL (7-30); Carbon Dioxide* 22 mmol/L (20-32); Creatinine* 0.8 mg/dL (0.5-1.5); Est. Creatinine Clearance* 41.33; Estimated Glomerular Filt Rate 76 ml/min
[2024-04-12 18:27] LABS: Calcium* 9.4 mg/dL (8.4-10.6); Glucose* 102 mg/dL (60-115)
--- NOTE | 2024-04-12 20:19 | CRLHL7_ITS ---
For Patients: As a result of the Century Cures Act, medical imaging exams and procedure reports are released immediately into your electronic medical record. You may view this report before your referring provider. If you have questions, please contact your health care provider. CLINICAL HISTORY: Trauma. Rule out cervical arterial dissection. TECHNIQUE: Standard helical CT image acquisition through the neck was performed after intravenous contrast bolus enhancement. 3D and MIP reconstructions were performed at a separate workstation and permanently archived. COMPARISON: None available. FINDINGS: The origins of the great vessels from the aortic arch are patent. The common carotid arteries are patent. No significant luminal stenoses of the proximal ICAs by NASCET criteria. The more distal cervical segments of the ICAs are patent. The origins and cervical segments of the vertebral arteries are patent. Note is made of marked corrugated morphology and tortuosity of the mid to distal cervical ICAs and vertebral arteries suggestive of underlying fibromuscular dysplasia. 5mm hypodense nodule in the right lobe of the thyroid gland. IMPRESSION: 1. Patent cervical arterial vasculature without hemodynamically significant luminal stenosis. 2. Findings in the cervical arterial vasculature suggestive of underlying fibromuscular dysplasia. Please note that all CT scans at this facility use dose modulation, iterative reconstruction, and/or weight-based dosing when appropriate to reduce radiation dose to as low as reasonably achievable. Dictated by Thomas Mondragon MD @ 04/13/2024 2:34:47 PM (Electronically Signed)
[2024-04-12] MEDS: ONDANSETRON 2 MG/ML inj 4 MG IVP (20:53)
[2024-04-12] MEDS: fentaNYL 100 MCG/2 ML inj 25 MCG IVP (20:53)
== END 2024-04-13 00:20 | disposition home or self-care (01) ==
PROVIDERS: Emergency Provider Emergency Medicine; PCP Internal Medicine
DX: S12.100A Unspecified displaced fracture of second cervical vertebra, initial encounter for closed fracture (principal); S29.9XXA Unspecified injury of thorax, initial encounter; V43.62XA Car passenger injured in collision with other type car in traffic accident, initial encounter
CPT/HCPCS: 36415; 70450; 70498; 71260; 72125; 74177; 80048; 85025; 85610; 96374; 96375; 99284; 99285; J2405; J3010; Q9967

== ENCOUNTER 2024-06-07 08:33 | Outpatient (CLI) | payer MEDICARE, BC, SELFPAY | END 2024-06-07 08:34 | disposition home or self-care (01) | LOC: NFLDREF 06-11 00:32 | PROVIDERS: PCP Internal Medicine; Referring Provider Internal Medicine; Visit Provider Internal Medicine | DX: E78.5 Hyperlipidemia, unspecified (principal); M85.80 Other specified disorders of bone density and structure, unspecified site | CPT/HCPCS: 80061; 82306 ==

== ENCOUNTER 2025-02-15 07:51 | Outpatient (CLI) | payer MEDICARE, BC, SELFPAY ==
--- NOTE | 2025-02-15 08:15 | CRLHL7_ITS ---
For Patients: As a result of the Century Cures Act, medical imaging exams and procedure reports are released immediately into your electronic medical record. You may view this report before your referring provider. If you have questions, please contact your health care provider. INDICATION: BILATERAL SCREENING MAMMOGRAM, ASYMPTOMATIC 79 Y/O FEMALE COMPARISON: 01/21/24, 01/16/23, 12/05/21 TECHNIQUE: CC and MLO views were obtained. These mammographic images have been obtained using full-field digital technique. These mammographic images were interpreted with the benefit of computer aided detection and tomosynthesis. BREAST COMPOSITION: There are scattered areas of fibroglandular density. FINDINGS: No suspicious findings. ASSESSMENT: BI-RADS 2 Benign RECOMMENDATION: Annual screening mammogram. A lay language report of this examination will be provided to the patient. Dictated by: Jaswinder Camp MD @ 02/15/2025 11:02:28 (Electronically Signed)
== END 2025-02-15 07:52 | disposition home or self-care (01) ==
LOC: MAMMO 07:52
PROVIDERS: PCP Internal Medicine; Visit Provider Internal Medicine
DX: Z12.31 Encounter for screening mammogram for malignant neoplasm of breast (principal)
CPT/HCPCS: 77063; 77067

== ENCOUNTER 2025-06-07 07:50 | Outpatient (CLI) | payer MEDICARE, BC, SELFPAY | END 2025-06-07 07:51 | disposition home or self-care (01) | LOC: NFLDREF 06-09 14:16 | PROVIDERS: PCP Internal Medicine; Referring Provider Internal Medicine; Visit Provider Internal Medicine | DX: E78.5 Hyperlipidemia, unspecified (principal); M85.80 Other specified disorders of bone density and structure, unspecified site | CPT/HCPCS: 80061; 82306 ==

== ENCOUNTER 2025-08-18 12:35 | Outpatient (CLI) | payer MEDICARE, BC, SELFPAY ==
--- NOTE | 2025-08-18 13:00 | CRLHL7_ITS ---
For Patients: As a result of the Century Cures Act, medical imaging exams and procedure reports are released immediately into your electronic medical record. You may view this report before your referring provider. If you have questions, please contact your health care provider. XR DXA BONE MINERAL DENSITY (BMD) Current height (in): 64.0. Weight (lb): 147.0. Menopause age: 60. Ethnicity: White. Reason for exam: Osteopenia. 1. Have you had a previous hip or vertebral fracture? No. 2. Have you had any fractures during your adult life which did not result from significant trauma (e.g., auto accident)? No. 3. Did either of your parents have a hip fracture? No. 4. Do you smoke? No. 5. Have you ever taken Glucocorticoids? Yes. 6. Do you have rheumatoid arthritis? No. 7. Do you have secondary osteoporosis? No. 8. Do you drink 3 or more alcoholic drinks per day? No. 9. Are you being treated for osteoporosis? No. 10. Have you ever taken any of the following medications: Actonel, Evista, Fosamax, Miacalcin, Reclast, Boniva, Forteo, HRT (i.e. estrogen/hormone therapy), Protelos, Prolia, Vitamin D, Calcium, other ??? please specify. ANSWER: Yes, vitamin D, calcium. 11. Do you have any of the following medical conditions: Anorexia or bulimia, asthma or emphysema, end stage renal disease, hyperparathyroidism, any seizure disorders, cancer, inflammatory bowel diseases, hysterectomy, other ??? please specify. ANSWER: Yes, asthma or emphysema. 12. What was your maximum height (inches)? 67. 13. Do you perform weight bearing exercise regularly? Not provided. 14. Do you regularly consume dairy products? Not provided. 15. Do you drink caffeinated beverages? Not provided. 16. At what age did your period start? 14. 17. Are you premenopausal? No. 18. How many full-term pregnancies have you had? 1. 19. Have you ever missed your period for more than 6 months in a row (not including or menopause)? No. TECHNIQUE: Bone mineral density study was performed using the [employer]. FINDINGS: The results of the study expressed as bone mineral density (BMD) are as follows: Lumbar spine L1 to L4: BMD: 1.081 g/cm2. T-score: 0.3. Z-score: 2.9 Neck Left: BMD: 0.670 g/cm2. T-score: -1.6. Z-score: 0.6 Right: BMD: 0.739 g/cm2. T-score: -1.0. Z-score: 1.2 Total Left: BMD: 0.905 g/cm2. T-score: -0.3. Z-score: 1.7 Right: BMD: 0.978 g/cm2. T-score: 0.3. Z-score: 2.3 IMPRESSION: Osteopenia. *Comparison exams done prior to 03/2020 were performed on different unit, [employer]. COMPARISON: Compared with scan of 05/18/2020, the bone mineral density has increased by 3.1 percent at the spine and increased by 9.9 percent at the hip. FRAX 10-year Fracture Risk Major Osteoporotic Fracture: 20 percent Hip Fracture: 5.6 percent Reported Risk Factors: [place] () Neck BMD = 0.670, BMI = 25.2 Noelle Webster M.D. Body/Diagnostic Radiologist [email or web address] Transcribed: 9:21 am DW/Dictated by: Noelle Webster MD @ 08/19/2025 3:11:00 AM (Electronically Signed)
== END 2025-08-18 12:36 | disposition home or self-care (01) ==
LOC: RAD 12:36
PROVIDERS: PCP Internal Medicine; Visit Provider Internal Medicine
DX: M85.89 Other specified disorders of bone density and structure, multiple sites (principal); Z78.0 Asymptomatic menopausal state
CPT/HCPCS: 77080

== ENCOUNTER 2025-09-23 09:39 | Emergency (ER) | payer MEDICARE, BC, SELFPAY ==
[2025-09-23 09:41] VITALS: BP 185/96; PULSE 73; RESP 18; TEMP 36.4; O2SAT 97
--- NOTE | 2025-09-23 10:27 | ED.FALL ---
HPI - Fall General Time Seen by Provider: 10:28 Date Seen: 09/23/25 Chief Complaint: Fall/Minor Trauma Stated Complaint: Fall last night, hit head Time Seen by Provider: 09/23/25 10:27 Source: patient, RN notes reviewed and other (Spoke with urgent care for sign-out on this patient.) Mode of arrival: ambulatory Limitations: no limitations History of Present Illness HPI Narrative: This 80-year-old female was referred from urgent care as she stated she needed to head CT. She tripped last night over a uneven area in the walk, fell against the wall hitting her head on the shovel. She did bruise her right dorsum of her hand, was painful last night but she took an ibuprofen, does not hurt today with any range of motion or movement of her hand or wrist. She really has no pain now. She hit the right side of her head, there is a little soreness in the area. She notes no significant headache but mildly has one, no visual changes, no numbness tingling weakness anywhere. She had no loss of consciousness. Baseline she has some gait imbalance at times, does do exercises to improve this. She has a history a subdural hematoma requiring evacuation twice few years ago. She was told if she ever hit her head to get into for head CT. She is on an 81 mg aspirin daily. They presented to the urgent care 1st, they are unable to do CT imaging and she was appropriately referred here. She has no neck pain. There is no other complaints of injury from the fall. MD complaint: fall Related Data Home Medications ?Medication ?Instructions ?Recorded ?Confirmed albuterol sulfate 90 mcg/actuation 2 puff inhalation PRN 05/02/22 06/14/25 aerosol inhaler calcium 600 mg (as 2 tab PO DAILY 05/02/22 09/23/25 carbonate)-vitamin D3 10 mcg (400 unit) tablet cyanocobalamin (vitamin B-12) 1,000 mcg PO DAILY 05/02/22 09/23/25 1,000 mcg tablet,extended release dorzolamide 22.3 mg-timolol 6.8 1 drp ophthalmic (eye) BID 05/02/22 09/23/25 mg/mL eye drops fluticasone propionate 230 2 inh inhalation BID 05/02/22 09/23/25 mcg-salmeterol 21 mcg/actuation HFA inhaler multivitamin (Multiple Vitamins 1 tab PO QAM 05/02/22 09/23/25 tablet) vitamin B complex 1 cap PO QDAY 05/02/22 09/23/25 aspirin 81 mg tablet 81 mg PO QDAY 06/14/25 09/23/25 Previous Rx's ?Medication ?Instructions ?Recorded atorvastatin 20 mg tablet 20 mg PO .Bedtime #90 tabs 06/14/25 losartan 25 mg tablet 25 mg PO DAILY #90 tabs 06/14/25 metoprolol succinate 50 mg 50 mg PO QDAY #90 tabs 06/14/25 tablet,extended release 24 hr Allergies Allergy/AdvReac Type Severity Reaction Status Date / Time No Known Allergies Allergy Unknown Verified 06/14/25 08:34 Review of Systems Status of ROS: Reports: 6 or more systems reviewed and unremarkable except as noted in History and below [facility] Medical History History of subdural hematoma ?Z86.79 - Personal history of other diseases of the circulatory system (ICD-10) Surgical History Retinal detachment ?H33.20 - Serous retinal detachment, unspecified eye (ICD-10) History of laparoscopic appendectomy (02/2014) ?Z90.49 - Acquired absence of other specified parts of digestive tract (ICD-10) History of bilateral salpingo-oophorectomy (BSO) (02/2014) ?Z90.79 - Acquired absence of other genital organ(s) (ICD-10) ?Z90.722 - Acquired absence of ovaries, bilateral (ICD-10) History of benign breast biopsy ?Z98.890 - Other specified postprocedural states (ICD-10) Social History What is your current living situation?: I presently have a place to live Problems where you live: no known problems In the past 12 months, utilities in danger of being shut off: no In past 12 months, lack of transportation kept you from medical appts, meetings, work, or getting things needed for daily living: no In the past 12 mos, have been you worried that your food would run out before you had money to buy more?: never true In the past 12 mos, the food you bought just didn't last and you didn't have money to buy more?: never true Smoking Status: Never smoker How often do you have a drink containing alcohol: monthly or less AUDIT-C Alcohol total score: 1 Non-prescribed substance use: denies use How often does anyone, including family, friends and others, physically hurt you: never How often does anyone, including family, friends and others, insult or talk down to you: never How often does anyone, including family, friends and others, threaten you with harm: never How often does anyone, including family, friends and others, scream or curse at you: never service: No Exam Const: Vital Signs, click to edit/add: Vital Signs - 24 hr 09/23/25 09:41 Temperature 97.5 F L Pulse Rate [Right Pulse Oximeter] 73 Respiratory Rate 18 Blood Pressure [Ri ght Upper Arm] 185/96 H Pulse Oximetry 97 Oxygen Delivery Me thod Room Air This 80-year-old female is ambulatory into the ED, gait a little slightly wide-based but overall stable at this time. She is able to turn and sit back on the bed. Pupils are equal round reactive, sclera clear, face atraumatic, symmetrical facial function, speech normal. No midline tenderness over her neck no paraspinous tenderness, good range of motion of her neck without complaint of pain. I see no visible area of erythema or bruising on the right side of her head where she states she fell against her head. External ears normal. Lungs clear, good air entry, no wheezing or crackles, no tachypnea, no accessory muscle use. CV regular rate and rhythm, no murmur. Abdomen soft. Strength is 5/5 and symmetric, normal sensation. No baseline tremor. She has some bruising on the dorsum of her hand at the base. There is no pain over the wrist, she really has full range of motion of the wrist and hand and fingers, no complaints of pain, strength is normal. Documenting provider has reviewed patient's vital signs: yes Course Course ED Course: Will do head CT imaging noncontrast for this patient. Do feel it is reasonable. Did offer x-ray imaging of her hand where there is bruising, she declines, I think it is reasonable as she really has no complaints of pain at this time. Reevaluation(s) Time of Reevaluation #1: 11:17 Reevaluation #1: Review normal head CT results, no acute bleed. She is quite happy to hear this. She has no change in her status, safe to discharge to home. Vital Signs Vital signs: Initial Vital Signs Temperature 97.5 F L 09/23/25 09:41 Temperature Source Temporal Artery Scan 09/23/25 09:41 Pulse Rate 73 09/23/25 09:41 Pulse Rhythm Regular 09/23/25 09:41 Pulse Strength 3+ Normal 09/23/25 09:41 Respiratory Rate 18 09/23/25 09:41 Blood Pressure 185/96 H 09/23/25 09:41 Blood Pressure Mean 125 H 09/23/25 09:41 Blood Pressure Position Sitting 09/23/25 09:41 Pulse Oximetry 97 09/23/25 09:41 Oxygen Delivery Method Room Air 09/23/25 09:41 Vital Signs Temperature 97.5 F L 09/23/25 09:41 Pulse Rate 73 09/23/25 09:41 Respiratory Rate 18 09/23/25 09:41 Blood Pressure 185/96 H 09/23/25 09:41 Pulse Oximetry 97 09/23/25 09:41 Oxygen Delivery Method Room Air 09/23/25 09:41 Temperature 97.5 F L 09/23/25 09:41 Pulse Rate 73 09/23/25 09:41 Respiratory Rate 18 09/23/25 09:41 Blood Pressure 185/96 H 09/23/25 09:41 Pulse Oximetry 97 09/23/25 09:41 Oxygen Delivery Method Room Air 09/23/25 09:41 MDM - Fall Imaging Data CT scan - head: Attestation: I have reviewed the pertinent imaging results. Radiologist's impression: Patient: ANTONINA MACEDO Facility:?[facility] Patient ID:?[id number] Site Patient ID:?[id number]. Site :?[id number] Study:?CT-Head W/O-09/23/2025 10:43:38 AM Ordering Physician:Al Napoles Final Report: INDICATION: Status post fall. TECHNIQUE: Head CT without contrast. COMPARISON: Head CT without contrast October 18, 2023. FINDINGS: Brain parenchyma and extra-axial spaces: There are nonspecific low attenuation white matter changes consistent with chronic microvascular disease. No sign of mass, hemorrhage, or midline shift. Stable encephalomalacia is seen in the right frontal lobe. Skull base and calvarium: The visualized paranasal sinuses and mastoid air cells demonstrate no acute or significant findings. Postsurgical changes in the right globe. Status post right frontotemporal craniotomy. IMPRESSION: No acute findings. Chronic findings as above. Please note that all CT scans at this facility use dose modulation, iterative reconstruction, and/or weight-based dosing when appropriate to reduce radiation dose to as low as reasonably achievable. Dictated by Homar Mack MD @ 09/23/2025 11:09:19 AM (Electronic Signature) Discharge Plan Discharge Clinical Impression: Fall, Closed head injury without loss of consciousness Patient Disposition: Home, Self-Care Condition: Stable Instructions: Fall Prevention for Older Adults (ED), Head Injury (ED) Additional Instructions: Fine to use Tylenol per bottle directions for any head discomfort or headache. Should you develop a severe headache, headache not improving with Tylenol, have other concerns for possible concussion, please seek re-evaluation. Please be careful on ice, uneven ground and walking outside in the winter. Activity Level: Activity as Tolerated Prescriptions: No Action aspirin 81 mg tablet 81 mg PO QDAY atorvastatin 20 mg tablet 20 mg PO .Bedtime Qty: 90 3RF losartan 25 mg tablet 25 mg PO DAILY Qty: 90 3RF metoprolol succinate 50 mg tablet extended release 24 hr 50 mg PO QDAY Qty: 90 3RF calcium carbonate-vitamin D3 600 mg-10 mcg (400 unit) tablet 2 tab PO DAILY vitamin B complex Capsule 1 cap PO QDAY multivitamin [Multiple Vitamins] Tablet 1 tab PO QAM albuterol sulfate 90 mcg/actuation HFA aerosol inhaler 2 puff inhalation PRN cyanocobalamin (vitamin B-12) 1,000 mcg tablet extended release 1,000 mcg PO DAILY dorzolamide-timolol 22.3-6.8 mg/mL drops 1 drp ophthalmic (eye) BID fluticasone propion-salmeterol 230-21 mcg/actuation HFA aerosol inhaler 2 inh inhalation BID Follow Up/Referrals: Astrid Malin MD [Primary Care Provider, Internal Medicine] Stand Alone Forms: [employer] Info Instructions
--- NOTE | 2025-09-23 10:28 | CRLHL7_ITS ---
For Patients: As a result of the Century Cures Act, medical imaging exams and procedure reports are released immediately into your electronic medical record. You may view this report before your referring provider. If you have questions, please contact your health care provider. INDICATION: Status post fall. TECHNIQUE: Head CT without contrast. COMPARISON: Head CT without contrast October 18, 2023. FINDINGS: Brain parenchyma and extra-axial spaces: There are nonspecific low attenuation white matter changes consistent with chronic microvascular disease. No sign of mass, hemorrhage, or midline shift. Stable encephalomalacia is seen in the right frontal lobe. Skull base and calvarium: The visualized paranasal sinuses and mastoid air cells demonstrate no acute or significant findings. Postsurgical changes in the right globe. Status post right frontotemporal craniotomy. IMPRESSION: No acute findings. Chronic findings as above. Please note that all CT scans at this facility use dose modulation, iterative reconstruction, and/or weight-based dosing when appropriate to reduce radiation dose to as low as reasonably achievable. Dictated by Homar Mack MD @ 09/23/2025 11:09:19 AM (Electronically Signed)
== END 2025-09-23 11:25 | disposition home or self-care (01) ==
PROVIDERS: Emergency Provider Family Medicine; PCP Internal Medicine
DX: S09.90XA Unspecified injury of head, initial encounter (principal); S60.221A Contusion of right hand, initial encounter; W18.09XA Striking against other object with subsequent fall, initial encounter; Y93.H1 Activity, digging, shoveling and raking
CPT/HCPCS: 70450; 99283; 99284